=== PATIENT | male | born 1955 | race Caucasian/White ===

== ENCOUNTER 2020-01-02 08:30 | Observation (INO) | payer BC, SELFPAY ==
[2020-01-02] VITALS (37 sets, daily range): BP systolic 128–219; BP diastolic 55–109; PULSE 38–91; RESP 12–25; TEMP 36.3–36.6; O2SAT 95–100; BMI 24.8
--- NOTE | 2020-01-02 | SC_ITS ---
WS: [id number] C-arm fluoroscopy view of the left chest, 01/02/2020 Clinical Data: pace maker Comparison: Portable chest, 01/02/2020 Findings: There are pacemaker wires overlying the heart. SC/C-arm FL for Pacemaker Impression: Pacemaker wires overlie the heart.
--- NOTE | 2020-01-02 | SCC_ITS ---
Procedure Done: Dual-chamber pacemaker implantation 125.4 seconds of fluoroscopic guidance, for a cumulative dose of 13.83 mGy, was provided to Dr. Lopez by the radiology department. C-arm images of the chest were saved for the patient's permanent record. [facility]
--- NOTE | 2020-01-02 08:33 | ECG_ITS ---
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 Measurements Intervals [place] Rate: 33 P: ND: -1 QRS: 175 QRSD: 138 T: 121 QT: 567 QTc: 424 Interpretive Statements SINUS BRADYCARDIA WITH 2ND DEGREE AV BLOCK, 2:1 OR MOBITZ TYPE I INTRAVENTRICULAR CONDUCTION DELAY [130+ ms QRS DURATION] Lead reversal in 1 and aVL ABNORMALITY IN I/aVL/V5/V6] PROLONGED QT INTERVAL CRITICAL TEST RESULT No previous ECG available for comparison Electronically Signed On 01-02-2020 19:41:17 CDT by Nish Lockhart M.D. [id number]
--- NOTE | 2020-01-02 08:33 | XRR_ITS ---
PROCEDURE INFORMATION: Exam: XR Chest, 1 View Exam date and time: 01/02/2020 8:58 AM Age: 64 years old Clinical indication: Type not specified; Patient HX: C/O shortness of breath and chest pain; Worse in last few days TECHNIQUE: Imaging protocol: XR of the chest Views: Frontal portable upright view of the chest. COMPARISON: No relevant prior studies available. FINDINGS: Tubes, catheters and devices: EKG leads are present overlying the chest. Lungs: The lungs are clear bilaterally. The pulmonary vasculature is normal. Pleural space: No pleural effusion. No pneumothorax. Heart/Mediastinum: The heart is normal in size and contour. Bones/joints: No acute chest wall abnormality identified. XR/XR chest 1V portable [id number] IMPRESSION: No acute cardiopulmonary abnormality identified.
[2020-01-02 08:51] LABS: Basophils # 0.1 10^3/uL (0.0-0.1); Basophils % 0.7 %; Eosinophils # 0.4 10^3/uL (0.0-0.8); Eosinophils % 4.8 %; Hematocrit 46.6 % (42.0-52.0); Hemoglobin 15.3 g/dL (11.7-16.6); Lymphocytes # 2.2 10^3/uL (0.8-4.8); Lymphocytes % 26.2 %; Mean Corpuscular HGB Conc 32.8 g/dL (30.0-36.0); Mean Corpuscular Hemoglobin 30.1 pg (28.0-34.0); Mean Corpuscular Volume 91.7 fL (80-94); Mean Platelet Volume 10.5 fL (7.4-10.4); Monocytes # 0.7 10^3/uL (0.2-0.9); Monocytes % 8.2 %; Neutrophils # 5.04 10^3/uL (1.8-7.7); Neutrophils % 59.9 %; Nucleated Red Blood Cells % 0 %; Platelet Count 323 10^3/cmm (130-400); Red Blood Count 5.08 10^6/uL (4.1-5.3); Red Cell Distribution Width 12.4 % (12.1-15.1); White Blood Count 8.4 10^3/uL (4.0-10.0)
--- NOTE | 2020-01-02 09:00 | ED_ITS ---
HPI - Chest Pain General: Chief Complaint: Chest Pain Stated Complaint: low HR Time Seen by Provider: 01/02/20 08:39 History of Present Illness: HPI narrative: 64-year-old male presents emergency room generally not feeling well for the last couple of weeks even months. He was seen yesterday at 1 of the outlying clinics was found to be bradycardic. On arrival here his heart rate is in the 30s he is not having any specific chest pain but just feels poorly. MD complaint: other (Bradycardia) Onset (ago): month(s) Timing of current episode: episodic and still present Onset: during rest and during exertion Relieving factors: nothing Exacerbating factors: nothing Associated symptoms: Reports dyspnea (With exertion); Deny abdominal pain, diaphoresis, leg edema, nausea, palpitations, sense of impending doom, syncope or vomiting Treatment prior to arrival: none Review of Systems Const: Denies: diaphoresis ENMT: Denies: throat pain, ear or mastoid pain, nasal discharge or nasal congestion Card: Denies: palpitations or syncope Resp: Reports: dyspnea (With exertion) GI: Denies: abdominal pain, nausea or vomiting : Denies: flank pain, dysuria, urinary frequency or urinary urgency Skin/Breast: Denies: rash or pruritus PFSH ED PFSH: Medical History Heart block bundle branch Social History Smoking and tobacco status: never smoked Physical Exam Const: COMMON NORMALS: no acute distress GENERAL APPEARANCE: cooperative and comfortable ORIENTATION/CONSCIOUSNESS: Yes awake, Yes oriented to person, Yes oriented to place and Yes oriented to time HENMT: COMMON NORMALS: normocephalic, atraumatic and hearing grossly normal bilaterally HEAD & SCALP: normocephalic and atraumatic Eye: COMMON NORMALS: Equal, round and reactive pupils present, EOMs intact bilaterally, conjunctivae normal and no scleral icterus CONJUNCTIVA: Yes conjunctivae normal PUPIL: Yes Equal, round and reactive pupils present Neck/C-Spine: COMMON NORMALS: no JVD Resp: COMMON NORMALS: normal respiratory effort, No retractions, No use of accessory muscles and clear to auscultation bilaterally AUSCULTATION: clear to auscultation bilaterally Cardio: COMMON NORMALS: no JVD, regular rhythm and No murmurs present (Cardio) RATE: bradycardic RHYTHM: regular rhythm and abnormal rhythm (Third-degree heart block noted on rhythm monitor) GI: COMMON NORMALS: Soft to palpation and No hepatosplenomegaly present AUSCULTATION: Yes normoactive bowel sounds PALPATION: Yes Soft to palpation, No Tenderness to palpation present (GI), No Guarding due to palpation present (GI) and Yes No hepatosplenomegaly present Extremity: COMMON NORMALS: normal to inspection, capillary refill normal, no clubbing, cyanosis or edema, no calf tenderness and no pedal edema Neuro: SENSORIUM/ORIENTATION: Yes oriented to person, Yes oriented to place and Yes oriented to time Skin: COMMON NORMALS: no rashes or lesions noted GENERAL SKIN EXAM: no rashes or lesions noted Course Vital Signs: Vital signs: Vital Signs Temperature 97.5 F L 01/03/20 03:15 Pulse Rate 60 01/03/20 09:46 Respiratory Rate 18 01/03/20 09:46 Blood Pressure 140/73 01/03/20 09:46 Pulse Oximetry 95 01/03/20 09:46 MDM - Chest Pain MDM Narrative: Medical decision making narrative: Patient is generally healthy. He does have a third-degree heart block on his monitor strip. He varies between a type II second-degree block to a full third-degree block and then will go back and this sinus bradycardia his heart rate at times dropping into the 30s. Consulted cardiology will see the patient in the emergency room we began to prep him for possible placement of temporary pacer he is on pacer pads and is on monitor at this time. Lab Data: Labs: Lab Results 01/02/20 01/02/20 01/02/20 Range/Units 08:41 08:41 08:41 WBC 8.4 (4.0-10.0) 10^3/ uL RBC 5.08 (4.1-5.3) 10^6/u L Hgb 15.3 (11.7-16.6) g/dL Hct 46.6 (42.0-52.0) % MCV 91.7 (80-94) fL MCH 30.1 (28.0-34.0) pg MCHC 32.8 (30.0-36.0) g/dL RDW 12.4 (12.1-15.1) % Plt Count 323 (130-400) 10^3/c mm MPV 10.5 H (7.4-10.4) fL Neut % (Auto) 59.9 % Lymph % (Auto) 26.2 % [place] % (Auto) 8.2 % Eos % (Auto) 4.8 % Baso % (Auto) 0.7 % Neut # (Auto) 5.04 (1.8-7.7) 10^3/u L Lymph # (Auto) 2.2 (0.8-4.8) 10^3/u L [place] # (Auto) 0.7 (0.2-0.9) 10^3/u L Eos # (Auto) 0.4 (0.0-0.8) 10^3/u L Baso # (Auto) 0.1 (0.0-0.1) 10^3/u L Nucleated RBC % (a uto) 0 % Nucleated RBCs # 0.0 /100WBC Sodium 138 (136-145) mmol/L Potassium 4.1 (3.5-5.1) mmol/L Chloride 102 (98-107) mmol/L Carbon Dioxide 26 (22-29) mmol/L Anion Gap 14.1 (5-19) BUN 10 (8-23) mg/dL Creatinine 0.8 (0.7-1.2) mg/dL GFR Calculation 97.6 (90-130) mL/min Glucose 145 H (65-115) mg/dL Calculated Osmolal ity 285 (285-295) mOsm/k g Calcium 9.4 (8.5-10.5) mg/dL Total Bilirubin 0.5 (0.15-1.2) mg/dL AST 23 (0-40) U/L ALT 21 (0-41) U/L Alkaline Phosphata se 75 (40-130) IU/L Troponin T Baselin e 13 (0-15) ng/L Total Protein 7.5 (6.6-8.7) g/dL Albumin 4.6 (3.5-5.2) g/dL Globulin 2.9 (1.3-4.6) g/dL TSH 3.81 (0.27-4.20) uIU/ mL Discharge Plan Discharge Patient Disposition: Admitted As Inpatient Admit Provider: Dionne Pelletier Clinical Impression: Heart block AV third degree Condition: Stable Discharge Diet: Usual diet and Low Salt Discharge Activity: Limit activity as instructed Discharge Date/Time: 01/02/20 11:06 Coding Level of Care Code 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
[2020-01-02 09:46] LABS: Troponin(5th) Baseline 13 ng/L (0-15)
[2020-01-02 09:53] LABS: Alanine Aminotransferase 21 U/L (0-41); Albumin Level 4.6 g/dL (3.5-5.2); Alkaline Phosphatase 75 IU/L (40-130); Anion Gap 14.1 (5-19); Aspartate Amino Transferase 23 U/L (0-40); Blood Urea Nitrogen 10 mg/dL (8-23); Calcium 9.4 mg/dL (8.5-10.5); Carbon Dioxide 26 mmol/L (22-29); Chloride 102 mmol/L (98-107); Creatinine Clr Calc Pharmacy 100.5123; Globulin 2.9 g/dL (1.3-4.6); Glomerular Filtration Rate 97.6 mL/min (90-130); Glucose 145 mg/dL (65-115); Osmolality Calculated 285 mOsm/kg (285-295); Potassium 4.1 mmol/L (3.5-5.1); Sodium 138 mmol/L (136-145); Thyroid Stimulating Hormone 3.81 uIU/mL (0.27-4.20); Total Bilirubin 0.5 mg/dL (0.15-1.2); Total Protein 7.5 g/dL (6.6-8.7)
--- NOTE | 2020-01-02 10:19 | ANES.PREANE2 ---
Pre-Anesthetic Assessment Pre-Anesthetic Assessment: Height/Weight: Height 1.78 m Weight 78.471 kg Temp Pulse Resp BP Pulse Ox 97.9 F 41 L 12 178/99 99 01/02/20 08:31 01/02/20 09:37 01/02/20 09:37 01/02/20 09:37 01/02/20 09:37 Preop Diagnosis: AV block Proposed Procedure: Operation Date: 01/02/20 12:30 Proposed Procedures p Pacemaker Insertion(Not Applicable) - Rob Lopez MD Familial anesthetic complications: none Was Beta Victor M taken within 24 hours: N/A Last intake: Patient had half a cup of cream of wheat cereal before 0700 and some black coffee (cereal and coffee contained no dairy) - light carbohydrate meal. Will wait til 1300 Social: Social History: No alcohol and No tobacco Exam: Pre-Anes Outpt Exam: alert, oriented x 3, clear to auscultation bilaterally and regular rate & rhythm Additional Exam Findings (including area of procedure): bradycardia Airway: Cervical ROM: WNL MP: 2 Dentition: Chipped CV/HEM: CV/HEM: Palp Comments: AV block Anesthetic Plan: ASA status: 4 Anesthesia: MAC Risk of > 500 ml blood loss (7ml/kg in children): No PFSH Anesthesia PFSH: Social History Smoking and tobacco status: never smoked Data Anesthesia CBC & Chem 7: 01/02/20 08:41 01/02/20 08:41 Other Labs: Laboratory Results - last 48 hr 01/02/20 01/02/20 01/02/20 08:41 08:41 08:41 WBC 8.4 RBC 5.08 Hgb 15.3 Hct 46.6 MCV 91.7 MCH 30.1 MCHC 32.8 RDW 12.4 Plt Count 323 MPV 10.5 H Neut % (Auto) 59.9 Lymph % (Auto) 26.2 [place] % (Auto) 8.2 Eos % (Auto) 4.8 Baso % (Auto) 0.7 Neut # (Auto) 5.04 Lymph # (Auto) 2.2 [place] # (Auto) 0.7 Eos # (Auto) 0.4 Baso # (Auto) 0.1 Nucleated RBC % (auto) 0 Nucleated RBCs # 0.0 Sodium 138 Potassium 4.1 Chloride 102 Carbon Dioxide 26 Anion Gap 14.1 BUN 10 Creatinine 0.8 GFR Calculation 97.6 Glucose 145 H Calculated Osmolality 285 Calcium 9.4 Total Bilirubin 0.5 AST 23 ALT 21 Alkaline Phosphatase 75 Troponin T Baseline 13 Total Protein 7.5 Albumin 4.6 Globulin 2.9 TSH 3.81 Cardiac Studies: No Data to Display
[2020-01-02] MEDS: nitroglycerin 1 gm/inch oint Pkt 0.5 INCH TOPICAL (10:23)
--- NOTE | 2020-01-02 10:33 | ECG_ITS ---
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 Measurements Intervals [place] Rate: 40 P: 14 [place]: 219 QRS: -4 QRSD: 133 T: 57 QT: 505 QTc: 415 Interpretive Statements SINUS BRADYCARDIA WITH FIRST DEGREE AV BLOCK INTRAVENTRICULAR CONDUCTION DELAY [130+ ms QRS DURATION] MODERATE VOLTAGE CRITERIA FOR LVH, CONSIDER NORMAL VARIANT [MEETS CRITERIA IN ONE OF: R(aVL), S(V1), R(V5), R(V5/V6)+S(V1)] POSSIBLE ANTERIOR MYOCARDIAL INFARCTION , OF INDETERMINATE AGE [30 ms Q WAVE IN V3/V4, OR R < 0.2 mV IN V4] CRITICAL TEST RESULT Compared to ECG 01/02/2020 08:32:27 First degree AV block now present Prolonged QT interval no longer present Myocardial infarct finding still present Electronically Signed On 01-02-2020 20:05:21 CDT by Nish Lockhart M.D. [id number]
--- NOTE | 2020-01-02 10:42 | P.HP_ITS ---
Providers/Chief Complaint Admitting Physician: Dionne Pelletier MD Primary Care Provider: ALYSSIA Gonzalez Chief Complaint: low HR History of Present Illness Husam Tse is a 64 year old male presented with uncontrolled hypertension and significant bradycardia with Mobitz type II heart block heart rate into high 30s to low 40s. In general patient is a healthy individual who denies any prior history of coronary artery disease he is a non-smoker nondiabetic. For past few months patient has been struggling with fatigue shortness of breath and slow heart rate. Occasionally he felt dizzy while standing, he attributed it to aging process. Today he noted worsening of fatigue and shortness of breath, he checked his pulse which was in 30s therefore he he came to ER. Twelve-lead EKG was consistent with Mobitz type II heart block and interventricular conduction delay. There was no electrolyte imbalance nor he is on any donna angela TSH is within normal limit. He denies history of Lyme disease. He denies chest pain PND orthopnea. His systolic blood pressure in the ER was in 190s. He does not on meds for hypertension. Medications/Allergies Home Medications Medication Instructions Recorded Confirmed Last Taken Type No Known Home Medications 01/02/20 01/02/20 Unknown History Allergies Allergy/AdvReac Type Severity Reaction Status Date / Time No Known Allergies Allergy Verified 01/02/20 08:46 PFSH Acute PFSH: Social History Smoking and tobacco status: never smoked Vitals/I&O/Wt Last Vital Signs Temp 97.9 F 01/02/20 08:31 Pulse 44 L 01/02/20 10:41 Resp 12 01/02/20 10:41 BP 155/86 01/02/20 10:41 Pulse Ox 96 01/02/20 10:41 Weight last 48 hrs Weight 173 lb Physical Exam Narrative: EXAM NARRATIVE: GENERAL: Patient is alert, awake and oriented x3. NECK: No jugular vein distension. HEENT: No cyanosis. No icterus. No pallor. HEART: Regular S1 and S2. No murmur, rub or gallop. LUNGS: Clear to auscultate bilaterally. ABDOMEN: Soft, nontender and nondistended. Positive bowel sounds. No guarding, rebound or tenderness. CENTRAL NERVOUS SYSTEM: Grossly nonfocal. EXTREMITIES: Lower extremities without edema bilaterally. Data : 01/02/20 08:41 01/02/20 08:41 Attestation for Other Data: I personally reviewed and interpreted the following: Other data: SINUS BRADYCARDIA WITH 2ND DEGREE AV BLOCK, 2:1 OR MOBITZ TYPE II INTRAVENTRICULAR CONDUCTION DELAY [130+ ms QRS DURATION] LATERAL MYOCARDIAL INFARCTION , OF INDETERMINATE AGE [40+ ms Q WAVE AND/OR ST/T ABNORMALITY IN I/aVL/V5/V6] PROLONGED QT INTERVAL CRITICAL TEST RESULT No previous ECG available for comparison A&P Assessment and plan (1) Heart block bundle branch: Patient has Mobitz type heart block with interventricular conduction delay suggestive of high degree heart block. He is not on any donna angela he denies chest pain denies history of coronary artery disease. His slow heart rate is going on for the last few months. He is symptomatic with shortness of breath and fatigue along with dizziness. At this point we recommend proceeding with permanent pacemaker. We have requested Dr. Lopez to see patient. Dr. Lopez saw the patient and agree with our findings. Surgery will proceed with permanent pacemaker placement most likely this afternoon. Patient will be n.p.o. Status: Acute (2) Essential hypertension: We will control blood pressure with nitro paste and probably drip if ne eded. Once pacemaker will be placed further titration of medicine will be performed. Status: Acute Attestations Medical Necessity Statement*: Patient require continuation hospitalization and admission for above defined care and for post pacemaker placement care. 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
--- NOTE | 2020-01-02 10:56 | PM.CONSULT ---
Providers/Reason For Consult Consulting Physican/Specialty*: Dr. Lopez/cardiothoracic surgery Reason for Consult*: Pacemaker implantation Requesting Physcian: Dr. Pelletier Attending Physician: Dionne Pelletier MD Primary Care Provider: ALYSSIA Gonzalez History of Present Illness History of Present Illness Husam Tse is a 64 year old male who was admitted after scheduled visit with Dr. Pelletier today upon referral from his primary care provider Ms. Blackburn. Mr. Tse has had a progressive 2 to 3-month history of increasing dyspnea with exertion and increasing fatigability. He was found upon presentation to his primary care provider yesterday to have marked bradycardia and Mobitz type II AV heart block, with interventricular conduction delay. He was seen today by Dr. Pelletier again with substantial highly symptomatic bradycardia. He was electively admitted and I was contacted by Dr. Pelletier to consider pacemaker implantation in expeditious fashion due to the highly symptomatic nature of his bradycardia. There is been no syncope though substantial and increasing fatigability and dyspnea with only modest exertion. He does have a history of poorly controlled hypertension. Thyroid functions are normal. No history for tickborne illness. Review of Systems Const: Denies: fever(s), chills, change in appetite, change in weight, fatigue or night sweats Eyes: Denies: change in vision or blurry vision ENMT: Denies: odynophagia or hoarseness Card: Reports: dyspnea on exertion; Denies: chest pain, palpitations, irregular heart rhythm, edema or orthopnea Resp: Denies: dyspnea or productive cough GI: Denies: abdominal pain, nausea, vomiting, dysphagia, heartburn or change in bowel habits : Denies: difficulty urinating, dysuria, urinary frequency, urinary urgency or urinary hesitancy Musc: Denies: extremity pain or extremity swelling Skin/Breast: Denies: rash Neuro: Denies: headache(s), numbness in extremities, weakness in extremities or sensory changes Psych: Denies: anxiety, depression or change in appetite Endo: Denies: polyuria, polydipsia or cold intolerance [place]/Lymph: Denies: easy bruising, easy bleeding, petechiae or enlarged lymph nodes Meds/Allergies Home Medications and Allergies Home Medications Medication Instructions Recorded Confirmed Last Taken Type No Known Home Medications 01/02/20 01/02/20 Unknown History Allergies Allergy/AdvReac Type Severity Reaction Status Date / Time No Known Allergies Allergy Verified 01/02/20 08:46 Current Medications Current Medications Generic Name Dose Route Start Last Admin Trade Name Loretta PRN Reason Stop Dose Admin Nitroglycerin 0.5 inch 01/02/20 09:45 01/02/20 10:23 Nitro-Bid TOPICAL 0.5 inch Q6H VIJAY Administration PFSH Acute PFSH: Social History Smoking and tobacco status: never smoked Vitals/I&O/Wt Last Vital Signs Temp 97.9 F 01/02/20 08:31 Pulse 44 L 01/02/20 10:41 Resp 12 01/02/20 10:41 BP 155/86 01/02/20 10:41 Pulse Ox 96 01/02/20 10:41 Weight last 48 hrs Weight 173 lb Physical Exam Const: COMMON NORMALS: patient oriented x3 and alert ORIENTATION/CONSCIOUSNESS: Yes oriented to person, Yes oriented to place and Yes oriented to time HENMT: COMMON NORMALS: normocephalic HEAD & SCALP: normocephalic Neck/C-Spine: COMMON NORMALS: full ROM, supple, no JVD and No carotid bruits GENERAL: Yes trachea midline CERVICAL SPINE: Yes cervical ROM normal Chest: COMMONS NORMALS: normal inspection of the chest and normal palpation of entire chest wall Resp: COMMON NORMALS: normal respiratory effort, No use of accessory muscles, clear to auscultation bilaterally and percussion normal EFFORT & INSPECTION: Yes able to speak in complete sentences and Yes symmetric chest movement AUSCULTATION: clear to auscultation bilaterally PERCUSSION: percussion normal Cardio: COMMON NORMALS: no JVD, regular rhythm, S1 normal heart sound present, S2 normal heart sound present, No gallops present (Cardio), No murmurs present (Cardio), No rub (Cardio) and Peripheral pulses 2+ throughout; negative for regular rate JUGULAR VENOUS DISTENTION: no JVD RATE: abnormal rate and bradycardic RHYTHM: regular rhythm HEART SOUNDS: S1 normal heart sound present and S2 normal heart sound present PERIPHERAL PULSES: Peripheral pulses 2+ throughout Neuro: COMMON NORMALS: patient oriented x3, no focal motor deficits and no sensory deficits noted SENSORIUM/ORIENTATION: Yes alert, Yes oriented to person, Yes oriented to place and Yes oriented to time GAIT: Yes Normal gait present Data Other Data: Attestation for Other Data: I personally reviewed and interpreted the following: (Chest x-ray is clear with normal cardiac silhouette and contours.) A&P Assessment and plan (1) Mobitz type II atrioventricular block: Highly symptomatic bradycardia with Mobitz type II AV heart block. I have conferred with my colleague Dr. Pelletier. We will proceed with expeditious pacemaker implantation around 1 PM today. I discussed the rationale very carefully with Mr. Tse and family at bedside. Details and risk of the procedure were Reviewed include the potential for pneumothorax requiring chest tube, major vascular injury, dislodgment of the leads requiring revision, pain after surgery, infection requiring removal of the device, and need for routine follow-up and monitoring. He and his family are eager to proceed. 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
--- NOTE | 2020-01-02 11:00 | PC.NURSE ---
RECEIVED FROM ER PER ROSELINE. ALERT/ORIENTED X3. PLEASANT,COOPERATIVE. HOOKED UP TO ZOLL MONITOR FOR EXTERNAL PACING IF BECOMES SYMPTOMATIC. PIID LEFT AC W/ NS @150 REPORTS HE HAS BEEN FEELING BAD FOR THE PAST COUPLE OF WEEKS & JUST GOTTEN PROGRESSIVELY WORSE OVER THE PAST COUPLE OF WEEKS WITH NOT BEING ABLE TO CATCH HIS BREATH.
[2020-01-02 11:04] LABS: Troponin 5 2HR 9.97 ng/L (0-15)
[2020-01-02 11:09] LABS: Troponin 5 2HR Delta -3.03 ABS# (0-10)
[2020-01-02] MEDS: sodium chloride 0.9% 1,000 ML 150 ML IV (11:40)
[2020-01-02] MEDS: chlorhexidine gluconate 4% Btl 118 mL 1 APPLIC TOPICAL (11:52)
--- NOTE | 2020-01-02 12:52 | PC.NURSE ---
OR STAFF HERE TO TRANSPORT TO SURGERY. WISHED WELL
[2020-01-02] MEDS: lidocaine 1% INJ 20 mL INJECTION (13:22)
[2020-01-02] MEDS: ceFAZolin 1,000 mg SDV 1000 MG IRRIGATION (13:23)
--- NOTE | 2020-01-02 14:12 | PM.OP ---
Operative Report Date of procedure: January 02, 2020 Pre-op Diagnosis: AV block Post-op diagnosis: same Procedure Done: Dual-chamber pacemaker implantation Pathology: none sent Surgeon: Rob Lopez Anesthesia: MAC and Local Complications: None: Post procedure chest x-ray pending Findings: Fluoroscopy utilized for guidewire, sheath, and lead positioning. Condition: stable Disposition: PACU Brief History: 64-year-old gentleman presented with progressive fatigue over the past 2 to 3 months and was found to be profoundly bradycardic with heart rates in the 30s to low 40s and appeared to have a Mobitz type II AV block. He was Evaluated in the ER and as well as by Dr. Pelletier from cardiology. Pacemaker implantation has been recommended. Rationale for the procedure was carefully and frankly discussed with Mr. Tse and his family. Proper consents have been reviewed and signed. Procedure: Procedure: Mr. Tse was taken to the OR suite and placed in the supine position over a shoulder roll. He received conscious sedation with continuous anesthesia monitoring by. His entire chest was sterilely prepped and draped. 1% lidocaine was infiltrated in the left subclavicular region. While in Trendelenburg position, utilizing modified seldinger technique, 2 guidewires were placed in the [left/right] subclavian vein. This was confirmed in position by fluoroscopy. Next, after infiltration with lidocaine, a subcutaneous pocket was created beginning from the exit point of the guidewire and extending laterally and inferiorly. Cautery was utilized to create the pocket just above the pectoralis musculature. Hemostasis was confirmed. An antibiotic-soaked sponge was placed in the wound. A dilator and tear-away sheath was placed over the first guidewire and advanced under fluoroscopy. Guidewire and dilator were removed. Next using a combination of curved and straight stylettes, the right ventricular lead was placed in position by fluoroscopy. The distal screw was extended. Interrogation was then performed confirming appropriate parameters. The tear-away sheath was then removed and the ventricular lead was sewn to the floor of the subcutaneous pocket. In a similar fashion dilator and tear-away sheath was placed over the 2nd guide wire and advanced under fluoroscopy. Guidewire and dilator were removed. Straight and curved stylettes were used to position the right atrial lead with fluoroscopy. Distal screw was extended. Interrogation was then performed. Tear-away sheath was then removed. Atrial lead was secured to the floor of the subcutaneous pocket. Pocket was irrigated with antibiotic solution and hemostasis again confirmed. Pacing generator was brought into the field, and after confirmation of hemostasis in the subcutaneous pocket, the leads were connected to the generator with appropriate capture. The entire system was interrogated by fluoroscopy. Leads and generator were secured in the pocket. Sponge and needle count was correct. The wound was then closed in 2 layers of 3-0 Vicryl suture. Skin was reapproximated in a subcuticular manner with 4-0 Monocryl suture. A pressure dressing was applied. The left arm was placed in a sling. Mr. Tse had equal breath sounds bilaterally. He was then transferred to the PACU, where chest x-ray is currently pending. I did student success counselor with the family at the completion of the procedure. Following are the specifics of this system: Right ventricular lead is 58 cm and model 5076. Serial number [id number] Right atrial lead is 52 cm and is model 5076. Serial number [id number]. Ventricular lead had sensing of 8.1 mV with an impedance of 798 ohms. Threshold was 0.5 V Atrial lead had sensing of 1.8 mV with an impedance of 475 ohms. Threshold was 0.5 V. [employer] generator: Model # [id number] Serial # [id number]
[2020-01-02] MEDS: sodium chloride 0.9% 1,000 ML 75 ML IV ×2 (14:30→19:53)
--- NOTE | 2020-01-02 14:33 | ECG_ITS ---
[facility] Test Date: 2020-01-02 Pat Name: Husam Tse Department: Room: ICU11 Gender: Male All Purpose Clerk: : 1955 Requested By: Jeri Jackson Order Number: [id number] Sunny MD: Nish Lockhart M.D. Measurements Intervals [place] Rate: 60 P: 158 NV: 180 QRS: -43 QRSD: 145 T: 80 QT: 474 QTc: 475 Interpretive Statements ELECTRONIC ATRIAL PACEMAKER ELECTRONIC VENTRICULAR PACEMAKER ABNORMAL RHYTHM ECG Compared to ECG 01/02/2020 10:20:01 Sinus bradycardia no longer present First degree AV block no longer present Intraventricular conduction delay no longer present Myocardial infarct finding no longer present Electronically Signed On 01-02-2020 20:07:55 CDT by Nish Lockhart M.D. [id number]
[2020-01-02 15:28] LABS: Troponin 5 6HR 15.78 ng/L (0-15); Troponin 5 6HR Delta 2.78 ng/L (0-12)
[2020-01-02] MEDS: oxyCODONE-APAP 5-325 mg Tablet 1 TAB PO (15:36)
--- NOTE | 2020-01-02 16:22 | PM.PACU ---
PACU note Post-Anesthesia Exam: awake and vital signs stable Disposition: admitted (to ICU)
[2020-01-02] MEDS: HYDROcodone-acetaminophen 5-325 mg Tablet 1 TAB PO (21:04)
--- NOTE | 2020-01-02 21:51 | PC.NURSE ---
CHANGE OF SHIFT Report given to current nurse by SAMRA Quezada. Patient requested pain medication closer to bedtime. NS running at 75 mL/hour. Patient informed of bedrest x 6 hours and informed that he could get up to pee at 2100. Patient to side of bed to urinate with minimal assistance, with emphasis on arm restrictions.
[2020-01-03] VITALS (29 sets, daily range): BP systolic 133–163; BP diastolic 73–96; PULSE 58–79; RESP 0–29; TEMP 36.4; O2SAT 95–98
[2020-01-03] MEDS: HYDROcodone-acetaminophen 5-325 mg Tablet 1 TAB PO (01:13)
--- NOTE | 2020-01-03 01:31 | PC.NURSE ---
HR INCREASE Patient stood up to side of bed with nurse to urinate. Patient heart rate briefly increased from 60 to 90's. Patients apical rate and radial rate were obtained and both were the same reading at 60 beats per minute. Patient returned to set rate of 60 quickly and denied any shortness of breath or chest discomfort.
--- NOTE | 2020-01-03 06:00 | ECG_ITS ---
[facility] Test Date: 2020-01-03 Pat Name: Husam Tse Department: Room: ICU11 Gender: Male Display Designer: TERESITAVICTOR HUGOBrigette : 1955 Requested By: Rob Lopez Order Number: [id number] Correa MD: Dionne Pelletier M.D. Measurements Intervals [place] Rate: 60 P: 196 AL: 180 QRS: 88 QRSD: 161 T: -11 QT: 495 QTc: 495 Interpretive Statements ELECTRONIC ATRIAL PACEMAKER ELECTRONIC VENTRICULAR PACEMAKER ABNORMAL RHYTHM ECG Compared to ECG 01/02/2020 14:57:52 No significant changes Electronically Signed On 01-03-2020 20:24:46 CDT by Dionne Pelletier M.D. [id number]
--- NOTE | 2020-01-03 06:00 | XR_ITS ---
WS: [id number] Portable AP upright chest, 01/03/2020 Clinical Data: Post permanent pacemaker placement; visualize lead tip Comparison: C-arm view of the central chest, 01/02/2020 Findings: No nodules, masses or effusions are seen. The heart is normal. The pulmonary vascularity is not increased. No pneumonia or pneumothorax is seen. The pacemaker leads appear to and in the right atrium and in the right ventricle. The pacemaker generator overlies the upper left lateral chest. XR/XR chest 1V [id number] Impression: Pacemaker wires visualized in the heart.
--- NOTE | 2020-01-03 06:15 | PM.PN ---
Subjective Subjective: Interval history: Postop day #1 status post dual-chamber pacemaker implantation. Uneventful night. [place] provided good pain relief. Monitor reveals dual paced rhythm. Vitals/I&O/Wt Last Vital Signs Temp 97.5 F L 01/03/20 03:15 Pulse 60 01/03/20 05:00 Resp 0 L 01/03/20 05:00 BP 150/92 01/03/20 05:00 Pulse Ox 96 01/03/20 05:00 01/02/20 01/02/20 01/03/20 14:59 22:59 06:59 Intake Total 50 / 50 1253.75 / 1303.75 500 / 1803.75 Output Total 350 / 350 650 / 1000 400 / 1400 Balance -300 / -300 603.75 / 303.75 100 / 403.75 Weight last 48 hrs Weight 173 lb Physical Exam Chest: COMMONS NORMALS: normal inspection of the chest (Outer dressing removed. Her dressing remains in place. No swelling or evidence for fluid collection.) Resp: COMMON NORMALS: normal respiratory effort, No use of accessory muscles and clear to auscultation bilaterally AUSCULTATION: clear to auscultation bilaterally Cardio: COMMON NORMALS: regular rate, regular rhythm and S1 normal heart sound present PALPATION: normal PMI RATE: regular rate RHYTHM: regular rhythm HEART SOUNDS: S1 normal heart sound present Data : 01/02/20 08:41 01/02/20 08:41 A&P Assessment and plan (1) Mobitz type II atrioventricular block: Postop day #1 status post dual-chamber pacemaker implantation. Recovering well. Plan may be discharged to home at the discretion of Dr. Pelletier. Follow-up in pacemaker clinic a week from tomorrow. I will place discharge incision care instructions in the discharge orders. Status: Acute Attestations Medical Necessity Statement*: Mobitz type II AV heart block, highly symptomatic bradycardia. Status post dual-chamber pacemaker implantation Time Spent in Patient Care: less than 15 minutes Coding Level of Care Code Acute Diesel Mechanic Helper for Valerie Gonsalves Diagnoses Mobitz type II atrioventricular block I44.1
--- NOTE | 2020-01-03 06:23 | PC.NURSE ---
SHIFT SUMMARY Patient had uneventful night and rested well. Patient up to side of bed to urinate twice with minimal assistance. 700 mL urine output this shift. [place] given twice tonight for pain. Patient was complaining of slight pain at 0615 but did not want an additional dose of pain medication yet. Dr. Lopez came to see patient at 0610 and removed top pressure dressing over incision. Site has no drainage or redness. Per Dr. Lopez, patient was able to take off sling with instruction on arm restrictions again and IV fluids to be stopped. Patient's HR at 60 this shift with the exception of one brief tachycardic episode (see previous note.)
--- NOTE | 2020-01-03 06:49 | PC.NURSE ---
Interrogated pacemacker. [employer] rep Umana called and reported that the pacemaker was functioning properly. Report in patient's chart.
--- NOTE | 2020-01-03 07:18 | ANE.PACU2 ---
Inpatient post-anesthesia follow up: Airway intact: Yes Vital signs: Temperature 97.5 F Pulse Rate [Apical ] 48 Pulse Rate 60 Respiratory Rate 19 Blood Pressure [Le ft Arm] 219/75 Blood Pressure 147/87 Pulse Oximetry 96 Oxygen Delivery Me thod Room Air Oxygen Flow Rate 6 Fraction of Inspir ed Oxygen Hydration adequate: Yes Nausea and vomiting: No Pain level: 3 Mental status: Baseline
[2020-01-03] MEDS: oxyCODONE-APAP 5-325 mg Tablet 1 TAB PO (08:36)
--- NOTE | 2020-01-03 09:36 | PC.NURSE ---
DR FELIZ HERE TO SEE PT. HE REVIEWED DISCHARGE INSTRUCTIONS WITH PT.
--- NOTE | 2020-01-03 09:39 | P.DS_ITS ---
Discharge Providers Date of Admission: 01/02/20 09:49 Date of Discharge: January 03, 2020 Attending Provider at Admission: Dionne Pelletier MD Attending Provider at Discharge: Dionne Pelletier MD Primary Care Provider: ALYSSIA Gonzalez Diagnoses at Discharge Discharge Diagnosis (1) Mobitz type II atrioventricular block: Status: Resolved Reason for Visit Reason for Visit: low HR Hospital Course Discharge Summary: 64-year-old male otherwise healthy non-smoker nondiabetic presented with Mobitz type II heart block with heart rate of 30s to 40s and history of fatigue presyncope severe fatigue. He was observed and ruled out for reversible causes. He was also noted to be hypertensive for which medicines were optimized. His blood pressure remains stable after that. He underwent dual-chamber pacemaker by Dr. Lopez. He started feeling right with better this morning he is walking around without any difficulty. Pacemaker wound looks good. He is being discharged home he will be following up with pacemaker clinic in 1 week and with me in 4 to 6 weeks. Physical Exam Narrative: EXAM NARRATIVE: GENERAL: Patient is alert, awake and oriented x3. Left chest pacemaker wound appeared good NECK: No jugular vein distension. HEENT: No cyanosis. No icterus. No pallor. HEART: Regular S1 and S2. No murmur, rub or gallop. LUNGS: Clear to auscultate bilaterally. ABDOMEN: Soft, nontender and nondistended. Positive bowel sounds. No guarding, rebound or tenderness. CENTRAL NERVOUS SYSTEM: Grossly nonfocal. EXTREMITIES: Lower extremities without edema bilaterally. Discharge Data Data Completed and Pending: Completed Studies During Hospitalization Category Date Time Status ELECTRO MECHANIC request for service Routin e Exams 01/02/20 09:11 Completed XR chest 1V [id number] Routine Exams 01/03/20 06:00 Completed XR chest 1V sai ble [id number] Urgent Exams 01/02/20 08:33 Completed Pending at discharge Category Date Time Status C-arm FL for Pace maker Routine Exams 01/02/20 Taken Labs from last 24 hours 01/02/20 01/02/20 01/02/20 14:48 10:35 08:41 Sodium Potassium Chloride Carbon Dioxide Anion Gap BUN Creatinine GFR Calculation Glucose Calculated Osmolal ity Calcium Total Bilirubin AST ALT Alkaline Phosphata se Troponin T Baselin e 13 Troponin T 120 Min sheryl 9.97 Delta Troponin T -3.03 L Troponin T Hi Sens 6Hr 15.78 H Troponin T Hi Sens 6Hr Delta 2.78 Total Protein Albumin Globulin TSH 01/02/20 08:41 Sodium 138 Potassium 4.1 Chloride 102 Carbon Dioxide 26 Anion Gap 14.1 BUN 10 Creatinine 0.8 GFR Calculation 97.6 Glucose 145 H Calculated Osmolal ity 285 Calcium 9.4 Total Bilirubin 0.5 AST 23 ALT 21 Alkaline Phosphata se 75 Troponin T Baselin e Troponin T 120 Min sheryl Delta Troponin T Troponin T Hi Sens 6Hr Troponin T Hi Sens 6Hr Delta Total Protein 7.5 Albumin 4.6 Globulin 2.9 TSH 3.81 Vitals: Last Vital Signs Temp 97.5 F L 01/03/20 03:15 Pulse 60 01/03/20 08:00 Resp 18 01/03/20 08:36 BP 163/95 01/03/20 08:00 Pulse Ox 95 01/03/20 08:36 Discharge Plan Discharge Patient Disposition: Home Condition: Stable Prescriptions: New hydrocodone-acetaminophen 5-325 mg Tablet 1 tab PO Q6H PRN (Reason: Moderate Pain) Qty: 15 RF: 0 lisinopril 5 mg tablet 5 mg PO DAILY Qty: 30 RF: 4 Discharge Orders: Discharge Order (Routine); Ordered 01/03/20 Ordered By: Dionne Pelletier Referrals: [facility] [Provider Group] - 7-10 days (Pacemaker clinic will do post pacemaker follow up, pacemaker check , wound check scheduled for January 09.2019 at 09:00 When appointment at this time ,will set follow up appointment with Pyaidee.) Dionne Pelletier MD [Physician] - (Dr. Pelletier will be out of town of January .so at time of wound check and pacemaker check january 09, [facility] will schedule appointment.) Discharge Diet: Usual diet and Low Salt Discharge Activity: Limit activity as instructed Patient Instructions: Lisinopril (By mouth), Hydrocodone/Acetaminophen (By mouth), Heart Healthy Diet (DC), Post Pacemaker - Lopez Activity Restrictions/Additional Instructions: Do not lift left arm above eye level for 1 week May remove bandage on Tuesday, January 04 After bandage removed, may begin daily showers. Dry incision completely. No swimming or tub baths x2 weeks Report any redness, swelling, drainage, increasing pain, or fever. Discharge Date/Time: 01/03/20 10:31 Discharge Attestations Time Spent in Discharge Care*: less than 30 min Specific Discharge Activities: Specific discharge activities: educating patient Quality Metrics Clinical Quality Measures During this hospital stay, did patient experience: None Coding Level of Care Code Acute Dining Chair Seat Cushion Trimmer for Chg Fwd Diagnoses Mobitz type II atrioventricular block I44.1
--- NOTE | 2020-01-03 10:31 | PC.NURSE ---
DISCHARGED HOME. TO PRIVATE VEHICLE BY WHEELCHAIR. ALERT/ORIENTED X3. ALL DISCHARGE INSTRUCTIONS REVIEWED W/ PT & FAMILY. THEY WILL WELLNESS PROGRAM ADMINISTRATOR MEDS AT [facility]. PERSONAL BELONGINGS SENT WITH PT. WISHED WELL.
== END 2020-01-03 10:31 | disposition home or self-care (01) ==
LOC: ER 09:46 → ICU 10:43
PROVIDERS: Physician Assistant; Thoracic Surgery (Cardiothoracic Vascular Surgery); Admitting Provider Internal Medicine Cardiovascular Disease; PCP Registered Nurse; Visit Provider Internal Medicine Cardiovascular Disease
DX: I44.1 Atrioventricular block, second degree (principal); I10 Essential (primary) hypertension
CPT/HCPCS: 33208; 12345; 36415; 71045; 76000; 80053; 84443; 84484; 85025; 93005; 96361; 96365; 96366; 99283; 99285; C1779; C1786; C1898; G0378; J0690; J2250; J2704; J3010; J7030

== ENCOUNTER → 2020-02-19 11:23 | Outpatient (BNVA) | payer BC, SELFPAY | PROVIDERS: PCP Registered Nurse; Visit Provider Nurse Practitioner Family | DX: J06.9 Acute upper respiratory infection, unspecified (principal) | CPT/HCPCS: 87426 ==

== ENCOUNTER → 2020-07-15 10:54 | Outpatient (BNVA) | payer OTHER, SELFPAY | PROVIDERS: PCP Family Medicine; Visit Provider Family Medicine | DX: I10 Essential (primary) hypertension (principal); R35.1 Nocturia; R10.13 Epigastric pain | CPT/HCPCS: 80053; 80061; 82043; 84153 ==

== ENCOUNTER → 2020-12-17 11:11 | Outpatient (BNVA) | payer OTHER, SELFPAY | PROVIDERS: PCP Family Medicine; Visit Provider Specialist | DX: M17.0 Bilateral primary osteoarthritis of knee (principal); M25.561 Pain in right knee; M25.562 Pain in left knee | CPT/HCPCS: 73560; 73565 ==

== ENCOUNTER → 2020-12-25 08:51 | Outpatient (BNVA) | payer OTHER, SELFPAY | PROVIDERS: PCP Family Medicine; Visit Provider Family Medicine Adult Medicine | DX: R39.15 Urgency of urination (principal); N41.0 Acute prostatitis | CPT/HCPCS: 81000 ==

== ENCOUNTER → 2021-01-06 09:26 | Outpatient (BNVA) | payer OTHER, SELFPAY | PROVIDERS: PCP Family Medicine; Visit Provider Family Medicine | DX: R10.13 Epigastric pain (principal) | CPT/HCPCS: 80053; 85025 ==

== ENCOUNTER → 2021-05-20 11:40 | Outpatient (BNVA) | payer MEDICARE, SELFPAY | PROVIDERS: PCP Family Medicine; Visit Provider Nurse Practitioner Family | DX: R06.00 Dyspnea, unspecified (principal); I10 Essential (primary) hypertension; Z95.0 Presence of cardiac pacemaker | CPT/HCPCS: 80048; 83880; 85025 ==

== ENCOUNTER 2021-08-04 10:17 | Observation (INO) | payer MEDICARE, SELFPAY ==
[2021-08-04] VITALS (13 sets, daily range): BP systolic 97–167; BP diastolic 56–93; PULSE 60–85; RESP 15–19; TEMP 36.5–37; O2SAT 94–96; BMI 24.7
--- NOTE | 2021-08-04 10:34 | ED_ITS ---
HPI - Chest Pain General: Chief Complaint: Chest Pain Stated Complaint: chest pain Time Seen by Provider: 08/04/21 10:26 Source: patient Mode of arrival: ambulatory Limitations: no limitations History of Present Illness: 66-year-old male presents with chest pain and shortness of breath. Patient seen a couple months ago for chest pain to rule out was negative and he was discharged to have an outpatient stress test unfortunately does not been able to be completed. In the interim he has had increasing episodes of dyspnea with lower and level lower exertion levels. He is now to the point where he is beginning to have chest discomfort and shortness of breath while at rest began early this morning while he was in bed and persisted intermittently throughout the morning until he finally presented to the emergency room is not have any chest discomfort initially on arrival here later in the visit though he did begin to complain of some chest tightness and increasing shortness of breath that occurred while he was sitting at rest. Earlier this morning the pain radiated into his neck and into his left shoulder as well. He is not diabetic he has no known history of coronary artery disease he did previously have a heart block requiring placement of a pacemaker in December 2019. complaint: chest pain Onset (ago): week(s) Timing of current episode: episodic Prior episodes: Yes Onset: during rest and during exertion Pain location: left chest Pain radiation: neck and left shoulder Severity: moderate Quality: tightness, aching and heaviness Relieving factors: rest Exacerbating factors: exertion Associated symptoms: Reports dyspnea; Deny abdominal pain, diaphoresis, fever(s), leg edema, nausea, palpitations, sense of impending doom, syncope or vomiting Treatment prior to arrival: none Review of Systems Const: Denies: fever(s) or diaphoresis ENMT: Denies: throat pain, ear or mastoid pain, nasal discharge or nasal congestion Card: Denies: palpitations or syncope Resp: Reports: dyspnea GI: Denies: abdominal pain, nausea or vomiting : Denies: flank pain, dysuria, urinary frequency or urinary urgency Skin/Breast: Denies: rash or pruritus PFSH ED PFSH: Medical History Essential hypertension Heart block bundle branch History of 2019 novel coronavirus disease (COVID-19) History of gastric ulcer Hyperlipidemia Pacemaker Prostatitis, acute Surgical History History of permanent cardiac pacemaker placement Family History Other CAD (coronary artery disease) Stroke Social History Smoking and tobacco status: never smoked Alcohol intake: never Physical Exam Const: COMMON NORMALS: no acute distress GENERAL APPEARANCE: cooperative and comfortable ORIENTATION/CONSCIOUSNESS: Yes awake, Yes oriented to person, Yes oriented to place and Yes oriented to time HENMT: COMMON NORMALS: normocephalic, atraumatic and hearing grossly normal bilaterally HEAD & SCALP: normocephalic and atraumatic Neck/C-Spine: COMMON NORMALS: no JVD Resp: COMMON NORMALS: normal respiratory effort, No retractions, No use of accessory muscles and clear to auscultation bilaterally AUSCULTATION: clear to auscultation bilaterally Cardio: COMMON NORMALS: no JVD, regular rate, regular rhythm and No murmurs present (Cardio) RATE: regular rate RHYTHM: regular rhythm GI: COMMON NORMALS: Soft to palpation and No hepatosplenomegaly present AUSCULTATION: Yes normoactive bowel sounds PALPATION: Yes Soft to palpation, No Tenderness to palpation present (GI), No Guarding due to palpation present (GI) and Yes No hepatosplenomegaly present Extremity: COMMON NORMALS: normal to inspection, capillary refill normal, no clubbing, cyanosis or edema, no calf tenderness and no pedal edema Neuro: SENSORIUM/ORIENTATION: Yes oriented to person, Yes oriented to place and Yes oriented to time Skin: COMMON NORMALS: no rashes or lesions noted GENERAL SKIN EXAM: no rashes or lesions noted Course Vital Signs: Vital signs: Vital Signs Temperature 98.6 F 08/04/21 11:17 Pulse Rate 67 08/04/21 13:10 Respiratory Rate 19 H 08/04/21 13:10 Blood Pressure 120/80 08/04/21 13:10 Pulse Oximetry 96 08/04/21 13:10 MDM - Chest Pain Medical Decision Making Escalating chest pain over time initially with exertion now at rest. We will go ahead and admit patient consult cardiology. Admit to the hospitalist altered ultrasound of echo he is also complaining of leg pain will get venous duplex. Medical Records I reviewed the patient's medical records. Lab Data I reviewed the patient's lab results. : 08/04/21 10:45 08/04/21 10:45 Radiology Impressions Chest X-Ray 08/04/21 10:35 IMPRESSION: 1. No acute findings. 2. Cardiac device left anterior chest. 3. Small granuloma left perihilar region Laboratory Results WBC 8.8 10^3/uL (4.0-10.0) 08/04/21 10:45 RBC 5.66 10^6/uL (4.1-5.3) H 08/04/21 10:45 Hgb 17.0 g/dL (11.7-16.6) H 08/04/21 10:45 Hct 50.8 % (42.0-52.0) 08/04/21 10:45 MCV 89.8 fl (80-94) 08/04/21 10:45 MCH 30.0 pg (28.0-34.0) 08/04/21 10:45 MCHC 33.5 g/dL (30.0-36.0) 08/04/21 10:45 RDW 12.3 % (12.1-15.1) 08/04/21 10:45 Plt Count 368 10^3/cmm (130-400) 08/04/21 10:45 MPV 10.0 fL (7.4-10.4) 08/04/21 10:45 Neut % (Auto) 66.9 % 08/04/21 10:45 Lymph % (Auto) 22.2 % 08/04/21 10:45 [place] % (Auto) 8.1 % 08/04/21 10:45 Eos % (Auto) 1.9 % 08/04/21 10:45 Baso % (Auto) 0.6 % 08/04/21 10:45 Neut # (Auto) 5.88 10^3/uL (1.8-7.7) 08/04/21 10:45 Lymph # (Auto) 2.0 10^3/uL (0.8-4.8) 08/04/21 10:45 [place] # (Auto) 0.7 10^3/uL (0.2-0.9) 08/04/21 10:45 Eos # (Auto) 0.2 10^3/uL (0.0-0.8) 08/04/21 10:45 Baso # (Auto) 0.1 10^3/uL (0.0-0.1) 08/04/21 10:45 Nucleated RBC % (auto) 0 % 08/04/21 10:45 Nucleated RBCs # 0.0 /100WBC 08/04/21 10:45 Sodium 138 mmol/L (136-145) 08/04/21 10:45 Potassium 3.7 mmol/L (3.5-5.1) 08/04/21 10:45 Chloride 101 mmol/L (98-107) 08/04/21 10:45 Carbon Dioxide 25 mmol/L (22-29) 08/04/21 10:45 Anion Gap 15.7 (5-19) 08/04/21 10:45 BUN 11 mg/dL (8-23) 08/04/21 10:45 Creatinine 0.7 mg/dL (0.7-1.2) 08/04/21 10:45 GFR Calculation 113.2 mL/min (90-130) 08/04/21 10:45 Glucose 109 mg/dL (65-115) 08/04/21 10:45 Calculated Osmolality 286 mOsm/kg (285-295) 08/04/21 10:45 Calcium 9.7 mg/dL (8.5-10.5) 08/04/21 10:45 Magnesium 2.3 mg/dL (1.7-2.3) 08/04/21 10:45 Total Bilirubin 0.4 mg/dL (0.15-1.2) 08/04/21 10:45 AST 26 U/L (0-40) 08/04/21 10:45 ALT 36 U/L (0-41) 08/04/21 10:45 Alkaline Phosphatase 95 IU/L (40-130) 08/04/21 10:45 Troponin T Baseline 8 ng/L (0-15) 08/04/21 10:45 Total Protein 8.4 g/dL (6.6-8.7) 08/04/21 10:45 Albumin 4.7 g/dL (3.5-5.2) 08/04/21 10:45 Globulin 3.7 g/dL (1.3-4.6) 08/04/21 10:45 TSH 3.63 uIU/mL (0.27-4.20) 08/04/21 10:45 Discharge Plan Discharge Admit Provider: Ramiro Garza Condition: Stable Coding Level of Care Code ED Hand Cloth Folder for Valerie Gonslaves
--- NOTE | 2021-08-04 10:35 | ECG_ITS ---
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 Measurements Intervals [place] Rate: 61 P: 139 DC: 180 QRS: -12 QRSD: 152 T: 128 QT: 438 QTc: 444 Interpretive Statements ELECTRONIC ATRIAL PACEMAKER ELECTRONIC VENTRICULAR PACEMAKER ABNORMAL RHYTHM ECG Compared to ECG 01/03/2020 05:49:31 No significant changes Electronically Signed On 08-04-2021 18:38:21 CDT by Idalmis Barajas M.D. [id number]
--- NOTE | 2021-08-04 10:35 | XRR_ITS ---
PROCEDURE INFORMATION: Exam: XR Chest Exam date and time: 08/04/2021 10:59 AM Age: 66 years old Clinical indication: Pain; Angina pectoris; Additional info: Chest pain TECHNIQUE: Imaging protocol: XR of the chest. Views: 1 view. COMPARISON: CR XR chest 1V [id number] 01/03/2020 5:15 AM FINDINGS: Tubes, catheters and devices: Cardiac device left anterior chest. New lines similar findings seen comparing to prior examination. Lungs: Unremarkable. No consolidation. Small granuloma left perihilar region Pleural spaces: Unremarkable. No pleural effusion. No pneumothorax. Heart/Mediastinum: Unremarkable. No cardiomegaly. Bones/joints: Unremarkable. XR/XR chest 1V portable [id number] IMPRESSION: 1. No acute findings. 2. Cardiac device left anterior chest. 3. Small granuloma left perihilar region
[2021-08-04] MEDS: aspirin 81 mg Chew Tablet 324 MG PO (10:43)
[2021-08-04 10:55] LABS: Basophils # 0.1 10^3/uL (0.0-0.1); Basophils % 0.6 %; Eosinophils # 0.2 10^3/uL (0.0-0.8); Eosinophils % 1.9 %; Hematocrit 50.8 % (42.0-52.0); Lymphocytes % 22.2 %; Mean Corpuscular HGB Conc 33.5 g/dL (30.0-36.0); Mean Corpuscular Volume 89.8 fl (80-94); Monocytes # 0.7 10^3/uL (0.2-0.9); Monocytes % 8.1 %; Neutrophils # 5.88 10^3/uL (1.8-7.7); Neutrophils % 66.9 %; Nucleated Red Blood Cells % 0 %; Platelet Count 368 10^3/cmm (130-400); Red Blood Count 5.66 10^6/uL (4.1-5.3); Red Cell Distribution Width 12.3 % (12.1-15.1); White Blood Count 8.8 10^3/uL (4.0-10.0)
[2021-08-04 11:20] LABS: Troponin(5th) Baseline 8 ng/L (0-15)
[2021-08-04 11:22] LABS: Alanine Aminotransferase 36 U/L (0-41); Albumin Level 4.7 g/dL (3.5-5.2); Alkaline Phosphatase 95 IU/L (40-130); Anion Gap 15.7 (5-19); Aspartate Amino Transferase 26 U/L (0-40); Blood Urea Nitrogen 11 mg/dL (8-23); Calcium 9.7 mg/dL (8.5-10.5); Carbon Dioxide 25 mmol/L (22-29); Chloride 101 mmol/L (98-107); Globulin 3.7 g/dL (1.3-4.6); Glomerular Filtration Rate 113.2 mL/min (90-130); Glucose 109 mg/dL (65-115); Osmolality Calculated 286 mOsm/kg (285-295); Potassium 3.7 mmol/L (3.5-5.1); Sodium 138 mmol/L (136-145); Total Bilirubin 0.4 mg/dL (0.15-1.2); Total Protein 8.4 g/dL (6.6-8.7)
--- NOTE | 2021-08-04 11:39 | USCV_ITS ---
Husam Tse Age: 66 Gender: M : 1955 Exam Date: 08/04/2021 11:50 Ordering Phys: Kannan Winslow DO Technologist: NEFTALI [place] [facility] [place] BLE PAIN AND SWELLING HISTORY: Lower extremity swelling. Lower extremity pain. PROCEDURES: Venous duplex imaging was performed in bilateral lower extremities. The following venous structures were evaluated: common femoral vein, profunda vein, proximal portion of the greater saphenous vein, superficial femoral vein, and the popliteal vein. In addition, the posterior tibial and peroneal trunk were evaluated. Serial compression, augmentation maneuvers, and spectral Doppler flow evaluation were performed. FINDINGS: Normal 2-D Doppler and augmentation and compressibility throughout the lower extremity venous structures. Additional imaging through the proximal calf veins also reveals no thrombus. Limited evaluation of the greater saphenous vein is patent with no thrombus. CONCLUSIONS No DVT bilateral lower extremities. Dr. Isabela Ramos DO (Electronically Signed) Final Date: 04 August 2021 14:47 S
[2021-08-04] MEDS: nitroglycerin 1 gm/inch oint Pkt 1 INCH TOPICAL (11:45)
--- NOTE | 2021-08-04 12:06 | USCV_ITS ---
Husam Tse Age: 66 Gender: M : 1955 Exam Date: 08/04/2021 12:08 Ordering Phys: Ramiro Garza MD Technologist: NEFTALI Exam Location: [facility] [place] Indication: chest pain BP: 147 / 91 HR: 59 Rhythm: Sinus Technical Quality: Adequate MEASUREMENTS (Male / Female) Normal Values 2D ECHO LV Diastolic Diameter PLAX 4.2 cm 4.2 - 5.9 / 3.9 - 5.3 cm LV Systolic Diameter PLAX 3.4 cm IVS Diastolic Thickness 1.7 cm 0.6 - 1.0 / 0.6 - 0.9 cm IVS Systolic Thickness 1.7 cm LVPW Diastolic Thickness 1.3 cm 0.6 - 1.0 / 0.6 - 0.9 cm LVPW Systolic Thickness 1.8 cm LVOT Diameter 2.0 cm LV Ejection Fraction 2D Teich 42.0 % LV Ejection Fraction MOD 2C 56.7 % LV Ejection Fraction 2C AL 55.8 % LA Diameter 3.1 cm LA Width 3.0 cm LA Height 3.5 cm RA Width 2.9 cm RA Height 3.3 cm Aorta at Sinotubular Diameter 2.6 cm M-MODE Aortic Annulus Diameter 2.6 cm LA Ao Ratio MM 1.1 MV E Point Septal Separation 0.5 cm DOPPLER AV Peak Velocity 106.0 cm/s LVOT Peak Velocity 74.0 cm/s AV Area Cont Eq vti 2.3 cm squared AV Area Cont Eq pk 2.3 cm squared MV Peak Velocity 60.0 cm/s MV Area PHT 2.5 cm squared Mitral E to A Ratio 0.8 MV E' Velocity 27.0 cm/s Mitral E to MV E' Ratio 6.3 Mitral E to LV E' Lateral Ratio 5.7 Mitral E to LV E' Septal Ratio 6.9 TR Peak Velocity 197.7 cm/s TR Peak Gradient 15.6 mmHg TR Mean Velocity 140.3 cm/s TR Mean Gradient 8.4 mmHg TR Velocity Time Integral 47.9 cm TV Peak E Velocity 45.0 cm/s Right Atrial Pressure 3.0 mmHg Pulmonary Artery Systolic Pressu 18.6 mmHg PV Peak Velocity 110.0 cm/s RV Acceleration Time 0.1 s RV Ejection Time 0.3 s RV AcT/ET 0.2 FINDINGS Left Ventricle Mild left ventricular hypertrophy. Grade I/IV diastolic dysfunction (abnormal relaxation filling pattern), normal to mildly elevated filling pressures. Relative hypokinesia of the septum Right Ventricle The right ventricle is normal in size and function. Right Atrium The right atrium is normal in size. Left Atrium The left atrium is normal in size. Mitral Valve No gross abnormalities noted Aortic Valve Thickened aortic valve. Tricuspid Valve Trace tricuspid valve regurgitation. Pulmonic Valve Pulmonic valve not well visualized. Pericardium Normal pericardium without effusion. Aorta Normal ascending aorta dimension. CONCLUSIONS Mild left ventricular hypertrophy. Grade I/IV diastolic dysfunction (abnormal relaxation filling pattern), normal to mildly elevated filling pressures. Relative hypokinesia of the septum. Thickened aortic valve. Trace tricuspid valve regurgitation. There is no pericardial effusion. There are no intracardiac masses. No previous study is available for comparison. Dr Nish Lockhart MD [facility] (Electronically Signed) Final Date: 04 August 2021 23:52 S
--- NOTE | 2021-08-04 12:06 | P.HP_ITS ---
Providers/Chief Complaint Admitting Physician: Ramiro Garza MD Primary Care Provider: Lainey Flores DO Chief Complaint: chest pain History of Present Illness Husam Tse is a 66 year old male who presents to the hospital with complaints of chest discomfort. He has had 3-4 episodes in the last week. His last episode was last night. He was nonexertional at that time. It lasted about 5 minutes. He felt an intense pressure. It eventually went away. Pain did seem to radiate to his neck. Some palpitations associated with this. No nausea. He also had some pain in his left leg, later. He denies any recent fever, cough. He has been having issues with exertional dyspnea for the last month or 2. There is also been concerns with snoring, and sleep apnea and he is going to see a field test engineer and have a sleep study. He has not had a prior history of coronary disease. He has had a pacemaker in 2019. Family reports a nuclear stress test done that was normal prior to the pacemaker but this appears to have been done in 2016. Review of Systems General: Reports: 10 or more systems reviewed and unremarkable except in HPI and below Const: Reports: fatigue, daytime sleepiness and snoring; Denies: fever(s) Eyes: Denies: change in vision ENMT: Denies: throat pain Card: Reports: chest pain, palpitations and dyspnea on exertion Resp: Reports: dyspnea; Denies: wheezing GI: Denies: abdominal pain, nausea, vomiting, hematochezia or melena : Denies: flank pain Musc: Reports: joint pain; Denies: back pain Skin/Breast: Denies: rash Neuro: Denies: headache(s) Psych: Reports: anxiety; Denies: depression Endo: Denies: polyuria Jeremiah/Lymph: Denies: easy bruising All/Imm: Denies: urticaria Medications/Allergies Home Medications Medication Instructions Recorded Confirmed Last Taken Type aspirin 325 mg tablet 325 mg PO .THREE TIME A WEEK 02/09/21 08/04/21 Unknown History metoprolol succinate 25 mg 25 mg PO QAM 08/04/21 08/04/21 08/04/21 06:30 History tablet,extended release 24 hr Allergies Allergy/AdvReac Type Severity Reaction Status Date / Time No Known Allergies Allergy Verified 08/04/21 10:52 PFSH Acute PFSH: Medical History (Updated 08/04/21 @ 12:18 by Ramiro Garza MD) Essential hypertension Heart block bundle branch History of 2019 novel coronavirus disease (COVID-19) History of gastric ulcer Hyperlipidemia Pacemaker Prostatitis, acute Surgical History History of permanent cardiac pacemaker placement Family History (Updated 08/04/21 @ 12:14 by Ramiro Garza MD) Other CAD (coronary artery disease) Stroke Social History Smoking and tobacco status: never smoked Alcohol intake: never Vitals/I&O/Wt Last Vital Signs Temp 98.6 F 08/04/21 11:17 Pulse 62 08/04/21 11:25 Resp 18 08/04/21 11:25 BP 136/90 08/04/21 11:25 Pulse Ox 96 08/04/21 11:25 Weight last 48 hrs Weight 78.018 kg Physical Exam Narrative: General exam is a conversant white male in no apparent distress with family at bedside HEENT: Pupils equally round. Oropharynx clear. Neck is supple no lymphadenopathy or thyromegaly Cardiovascular regular rate and rhythm without murmur, no S3 or S4 Lungs clear no wheezing or crackles Chest pacemaker palpated left upper chest without erythema Abdomen is soft with positive bowel sounds. No obvious organomegaly exam was deferred Extremities no cyanosis clubbing or edema, cap refill brisk Skin no rash Neuro no obvious focal deficits. Data : 08/04/21 10:45 08/04/21 10:45 Other Labs: LFTs normal Troponin baseline 8, repeat pending Calcium 9.7 Chest x-ray no infiltrate, pacemaker noted EKG demonstrates paced atrial and ventricular rhythm, borderline left axis deviation A&P Assessment and plan (1) Chest pain: Significant chest discomfort, described as pressure, occurring at rest. Has had several episodes, but the worst last night. In the last several months has had exertional dyspnea that is worsening. This is suspicious for cardiac origin. Troponins is negative. Continue serial measurements Check echocardiogram Some component of palpitations, with the discomfort. Placed on telemetry, and perform pacemaker interrogation. Check TSH, magnesium level Cardiology consultation Aspirin daily Check lipid profile Consider continuing nitrates if any chest discomfort recurs Status: Acute (2) Dyspnea on exertion: See above Status: Acute (3) Essential hypertension: Continue metoprolol Close monitoring of blood pressure Adjust medicines as needed Status: Acute (4) Pacemaker: Pacemaker interrogation Status: Acute (5) Left leg pain: Reported some left leg pain, following his chest discomfort. Venous duplex shows a Lundberg's cyst, but official report is pending. Unlikely to have DVT. Status: Acute (6) History of gastric ulcer: Patient with past history of gastric ulcers, although no symptoms suggestive of this currently. Add Protonix while in hospital Status: Acute (7) Snoring: Patient to have sleep study done as an outpatient. Status: Acute Plan Full code Lovenox will suffice for DVT prophylaxis Attestations Medical Necessity Statement*: Will need less than 2 midnight stay for evaluation of chest discomfort. Coding Level of Care Code Acute Insolvency Consultant for Bethg Marthad Diagnoses Chest pain R07.9 Dyspnea on exertion R06.00 Essential hypertension I10 Pacemaker Z95.0 Left leg pain M79.605 History of gastric ulcer Z87.11 Snoring R06.83
--- NOTE | 2021-08-04 12:35 | ECG_ITS ---
[facility] Test Date: 2021-08-04 Pat Name: Husam Tse Department: Room: Gender: Male [place]er Off: : 1955 Requested By: Kannan Leigh Order Number: [id number] Sunny MD: Idalmis Barajas M.D. Measurements Intervals Kathleen Rate: 61 P: 115 OK: 181 QRS: -26 QRSD: 150 T: 62 QT: 428 QTc: 432 Interpretive Statements ELECTRONIC ATRIAL PACEMAKER ELECTRONIC VENTRICULAR PACEMAKER ABNORMAL RHYTHM ECG Compared to ECG 08/04/2021 10:26:23 No significant changes Electronically Signed On 08-04-2021 18:42:51 CDT by Idalmis Barajas M.D. [id number]
[2021-08-04] MEDS: perflutren protein-a microsphr 0.22 mg/mL SDV 3 mL IV (12:52)
[2021-08-04 13:12] LABS: Magnesium 2.3 mg/dL (1.7-2.3); Thyroid Stimulating Hormone 3.63 uIU/mL (0.27-4.20)
[2021-08-04 14:14] LABS: Troponin 5 2HR 8.79 ng/L (0-15)
[2021-08-04 14:25] LABS: Troponin 5 2HR Delta 0.79 ABS# (0-10)
[2021-08-04] MEDS: enoxaparin 40 mg/0.4 mL Syringe SUBCUT (14:53)
[2021-08-04] MEDS: acetaminophen 325 mg Tablet 650 MG PO (16:04)
--- NOTE | 2021-08-04 16:35 | ECG_ITS ---
[facility] Test Date: 2021-08-04 Pat Name: Husam Tse Department: Room: 105 Gender: Male Structurer: : 1955 Requested By: Kannan Leigh Order Number: [id number] Sunny MD: Idalmis Barajas M.D. Measurements Intervals Grant Rate: 60 P: 116 LA: 176 QRS: -22 QRSD: 165 T: 77 QT: 470 QTc: 472 Interpretive Statements ELECTRONIC ATRIAL PACEMAKER ELECTRONIC VENTRICULAR PACEMAKER ABNORMAL RHYTHM ECG Compared to ECG 08/04/2021 12:33:10 No significant changes Electronically Signed On 08-04-2021 18:39:20 CDT by Idalmis Barajas M.D. [id number]
--- NOTE | 2021-08-04 16:53 | P.CONIM_ITS ---
Providers/Reason For Consult Consulting Physician/Specialty*: FAIZAN Lockhart MD/cardiology Reason for Consult*: Patient with chest pain/hypertension/permanent pacer implantation Requesting Physician: Dr. Garza Attending Physician: Ramiro Garza MD Primary Care Provider: Lainey Flores DO History of Present Illness History of Present Illness Husam Tse is a 66 year old male with a history of hypertension, atrial arrhy thmia, permanent pacer implantation for symptomatic bradycardia/high degree AV block, he is presenting with complaints of prolonged episode of chest pain and shortness of breath. The patient apparently has been in his baseline state of health up until early this morning around 2:00. He woke up from sleep with chest pain. He described as a pressure-like squeezing type of pain in the left side of the chest. He had associated shortness of breath. The pain was radiating to the left side of the neck and also to the left leg. The chest pain might have lasted for 4 hours or so and then gradually subsided. He continued to have some pain in the left side of the neck and also of the left leg. Had no nausea or vomiting. No palpitation, dizziness or syncopal episodes. He has been having episodes of chest pains and shortness of breath for the last couple of years. He seems to be getting it more often and more severe, lately. He has no associated nausea vomiting. He had a stress test in 2019 which was unremarkable. He is scheduled for a PFT next week. Denies any fever or chills. No significant cough. He was seen by a bad work gatherer recently for the evaluation of shortness of breath His brother had a myocardial infarction in his 40s. Mother had a stroke and a permanent pacer implantation. High blood pressure runs in the family. Review of Systems Narrative: CONSTITUTIONAL: No fever or chills. EYES: No blurring of vision or other visual disturbances lately. ENT: No hoarseness of voice, auditory disturbances or sore throat. CARDIOVASCULAR: As mentioned above. RESPIRATORY: Has been having some shortness of breath. Scheduled for a sleep study. GASTROINTESTINAL: No hematemesis or melena. GENITOURINARY: No dysuria or hematuria. INTEGUMENTARY: No skin rashes or history of skin cancer. NEURO: No transient ischemic attacks or amaurosis. PSYCHIATRIC: No history of psychosis or major depression. HEMATOLOGIC: No bleeding disorders or significant anemia. ENDOCRINE: No history of polyuria or polydipsia. MUSCULOSKELETAL: No recent joint pain or swelling. ALLERGY/IMMUNOLOGY: As mentioned above. Medications/Allergies Home Medications Medication Instructions Recorded Confirmed Last Taken Type aspirin 325 mg tablet 325 mg PO .THREE TIME A WEEK 02/09/21 08/04/21 Unknown History metoprolol succinate 25 mg 25 mg PO QAM 08/04/21 08/04/21 08/04/21 06:30 History tablet,extended release 24 hr Allergies Allergy/AdvReac Type Severity Reaction Status Date / Time No Known Allergies Allergy Verified 08/04/21 10:52 Current Medications Generic Name Dose Route Start Last Admin Trade Name Freq PRN Reason Stop Dose Admin Acetaminophen 650 mg 08/04/21 12:53 08/04/21 16:04 Acetaminophen 325 Mg Tablet PO 650 mg Q6H PRN Administration Mild/Mod Pain Or Temp >/= 101 Enoxaparin Sodium 40 mg 08/04/21 12:53 08/04/21 14:53 Enoxaparin 40 Mg/0.4 Ml Syringe SUBCUT 40 mg Q24H VIJAY Administration PFSH Acute PFSH: Medical History (Updated 08/04/21 @ 16:55 by Nish Lockhart MD) Essential hypertension Heart block bundle branch History of 2019 novel coronavirus disease (COVID-19) History of gastric ulcer Hyperlipidemia Pacemaker Prostatitis, acute Surgical History History of permanent cardiac pacemaker placement Family History Other CAD (coronary artery disease) Stroke Social History Smoking and tobacco status: never smoked Alcohol intake: never Vitals/I&O/Wt Last Vital Signs Temp 98.6 F 08/04/21 11:17 Pulse 85 08/04/21 16:32 Resp 19 H 08/04/21 13:10 BP 120/80 08/04/21 13:10 Pulse Ox 94 08/04/21 16:32 Weight last 48 hrs Weight 172 lb Physical Exam Narrative: GENERAL: The patient is alert and oriented times three. Not in any acute distress. HEENT: No significant pallor, icterus or lymphadenopathy. The pupils are reactant to light. Oral cavity: There are no mucous membrane lesions. Funduscopic examination: The disk margins appear to be sharp with no exudates or hemorrhages. NECK: Trachea appears to be central. No masses noted. No JVD or thyromegaly appreciated. No carotid bruit. RESPIRATORY: Chest is symmetrical. No intercostals muscle retraction or any accessory muscle activation. There is no chest wall tenderness. Breath sounds are heard bilaterally. No rales or rhonchi heard. No evidence of any consolidation. BREASTS: Deferred. HEART: The PMI is in the 5th left intercostals space just inside the midclavicular line. No palpable precordial events. S1 and S2 are normal. No S3 or S4 heard. No pericardial rub or any click heard. ABDOMEN: No vessel pulsations or distention. No tenderness. No organomegaly appreciated. No abdominal bruit. Bowel sounds are normally heard. : Deferred. RECTAL: Deferred. LYMPHATIC: No lymphadenopathy noted in the neck or groin. EXTREMITIES: No edema or cyanosis. No clubbing. The pulses are symmetrical bila terally. The radial, femoral, dorsalis pedis and the posterior tibial pulses are palpated and found to be in good volume and amplitude. MUSCULOSKELETAL: No acute joint deformities or swelling SKIN: There are no significant scars or skin rash noted. NEUROPSYCHIATRIC: The patient is alert and oriented x3. Appears to be in a good mood. The higher functions are grossly within normal limits. No tremors or rigidity noted. Data : 08/04/21 10:45 08/04/21 10:45 Other Labs: Laboratory Last Values WBC 8.8 10^3/uL (4.0-10.0) 08/04/21 10:45 RBC 5.66 10^6/uL (4.1-5.3) H 08/04/21 10:45 Hgb 17.0 g/dL (11.7-16.6) H 08/04/21 10:45 Hct 50.8 % (42.0-52.0) 08/04/21 10:45 MCV 89.8 fl (80-94) 08/04/21 10:45 MCH 30.0 pg (28.0-34.0) 08/04/21 10:45 MCHC 33.5 g/dL (30.0-36.0) 08/04/21 10:45 RDW 12.3 % (12.1-15.1) 08/04/21 10:45 Plt Count 368 10^3/cmm (130-400) 08/04/21 10:45 MPV 10.0 fL (7.4-10.4) 08/04/21 10:45 Neut % (Auto) 66.9 % 08/04/21 10:45 Lymph % (Auto) 22.2 % 08/04/21 10:45 [place] % (Auto) 8.1 % 08/04/21 10:45 Eos % (Auto) 1.9 % 08/04/21 10:45 Baso % (Auto) 0.6 % 08/04/21 10:45 Neut # (Auto) 5.88 10^3/uL (1.8-7.7) 08/04/21 10:45 Lymph # (Auto) 2.0 10^3/uL (0.8-4.8) 08/04/21 10:45 [place] # (Auto) 0.7 10^3/uL (0.2-0.9) 08/04/21 10:45 Eos # (Auto) 0.2 10^3/uL (0.0-0.8) 08/04/21 10:45 Baso # (Auto) 0.1 10^3/uL (0.0-0.1) 08/04/21 10:45 Nucleated RBC % (auto) 0 % 08/04/21 10:45 Nucleated RBCs # 0.0 /100WBC 08/04/21 10:45 Sodium 138 mmol/L (136-145) 08/04/21 10:45 Potassium 3.7 mmol/L (3.5-5.1) 08/04/21 10:45 Chloride 101 mmol/L (98-107) 08/04/21 10:45 Carbon Dioxide 25 mmol/L (22-29) 08/04/21 10:45 Anion Gap 15.7 (5-19) 08/04/21 10:45 BUN 11 mg/dL (8-23) 08/04/21 10:45 Creatinine 0.7 mg/dL (0.7-1.2) 08/04/21 10:45 GFR Calculation 113.2 mL/min (90-130) 08/04/21 10:45 Glucose 109 mg/dL (65-115) 08/04/21 10:45 Calculated Osmolality 286 mOsm/kg (285-295) 08/04/21 10:45 Calcium 9.7 mg/dL (8.5-10.5) 08/04/21 10:45 Magnesium 2.3 mg/dL (1.7-2.3) 08/04/21 10:45 Total Bilirubin 0.4 mg/dL (0.15-1.2) 08/04/21 10:45 AST 26 U/L (0-40) 08/04/21 10:45 ALT 36 U/L (0-41) 08/04/21 10:45 Alkaline Phosphatase 95 IU/L (40-130) 08/04/21 10:45 Troponin T Baseline 8 ng/L (0-15) 08/04/21 10:45 Troponin T 120 Minute 8.79 ng/L (0-15) 08/04/21 13:35 Delta Troponin T 0.79 ABS# (0-10) 08/04/21 13:35 Total Protein 8.4 g/dL (6.6-8.7) 08/04/21 10:45 Albumin 4.7 g/dL (3.5-5.2) 08/04/21 10:45 Globulin 3.7 g/dL (1.3-4.6) 08/04/21 10:45 TSH 3.63 uIU/mL (0.27-4.20) 08/04/21 10:45 EKG 1: My Interpretation: The EKG revealed 100% AV paced rhythm. Further interpretation is not possible EKG computer-generated impression: Chest X-Ray 08/04/21 10:35 IMPRESSION: 1. No acute findings. 2. Cardiac device left anterior chest. 3. Small granuloma left perihilar region A&P Assessment and plan (1) Chest pain: Patient's episode of prolonged chest pain associated with the shortness of breath may suggest unstable angina. However the EKG is uninterpretable. No evidence of myocardial injury. Currently he seems to be stable hemodynamically Status: Acute (2) Essential hypertension: Currently he is normotensive. May currently on the current medication. Status: Acute (3) Presence of permanent cardiac pacemaker: Pacemaker function was found to be appropriate. Status: Acute (4) Atrial arrhythmia: Patient has a history of atrial arrhythmia and sinus tachycardia. Currently he is in a stable rhythm. Status: Acute Plan The troponin T at 6 hours is pending. For further management of his condition, and echocardiogram would be helpful. I may start him on subcu Lovenox, and a statin drug. Metoprolol and the aspirin will be continued. We may consider doing a cardiac catheterization to further evaluate his coronary status to decide on further management. Consult Attestations Medical Necessity Statement: Based on the patient's clinical progress and the results of the above test results, further recommendations will be made. Thank you for the opportunity to evaluate this patient and make these re commendations Coding Level of Care Code Acute Rolling Down Machine Operator for Valerie Gonsalves History Detailed Exam Detailed Medical Decision Making Moderate Complexity Diagnoses Chest pain R07.9 Essential hypertension I10 Presence of permanent cardiac pacemaker Z95.0 Atrial arrhythmia I49.8
[2021-08-04] MEDS: pantoprazole DR 40 mg Tablet PO (17:34)
[2021-08-04 17:44] LABS: Troponin 5 6HR 9.21 ng/L (0-15)
[2021-08-04 18:20] LABS: Troponin 5 6HR Delta 1.21 ng/L (0-12)
[2021-08-04] MEDS: atorvastatin 40 mg Tablet PO (19:56)
--- NOTE | 2021-08-04 23:24 | PC.NURSE ---
Patient states that he sometimes wakes up and gasps for air. Patient states it has been going on for a few months and that he has a sleep study set up. Oxygen saturation is currently 94 percent on room air and will be monitored continually.
[2021-08-05] VITALS (16 sets, daily range): BP systolic 99–143; BP diastolic 69–90; PULSE 30–69; RESP 8–20; TEMP 36–36.9; O2SAT 94–96
[2021-08-05] MEDS: enoxaparin 80 mg/0.8 mL Syringe SUBCUT (02:04)
[2021-08-05 06:42] LABS: Basophils # 0.1 10^3/uL (0.0-0.1); Basophils % 0.6 %; Eosinophils # 0.2 10^3/uL (0.0-0.8); Eosinophils % 2.5 %; Hematocrit 43.9 % (42.0-52.0); Hemoglobin 14.8 g/dL (11.7-16.6); Lymphocytes # 2.2 10^3/uL (0.8-4.8); Mean Corpuscular HGB Conc 33.7 g/dL (30.0-36.0); Mean Corpuscular Hemoglobin 30.4 pg (28.0-34.0); Mean Corpuscular Volume 90.1 fl (80-94); Mean Platelet Volume 10.3 fL (7.4-10.4); Monocytes # 0.8 10^3/uL (0.2-0.9); Monocytes % 9.2 %; Neutrophils # 5.41 10^3/uL (1.8-7.7); Neutrophils % 62.5 %; Nucleated Red Blood Cells % 0 %; Platelet Count 301 10^3/cmm (130-400); Red Blood Count 4.87 10^6/uL (4.1-5.3); Red Cell Distribution Width 12.4 % (12.1-15.1); White Blood Count 8.7 10^3/uL (4.0-10.0)
[2021-08-05 06:59] LABS: Blood Urea Nitrogen 16 mg/dL (8-23); Calcium 8.9 mg/dL (8.5-10.5); Carbon Dioxide 25 mmol/L (22-29); Chloride 105 mmol/L (98-107); Chol HDL Ratio 5.02 mg/dL (1.0-5.00); Cholesterol 241 mg/dL (0-200); Glomerular Filtration Rate 113.2 mL/min (90-130); Glucose 91 mg/dL (65-115); HDL Cholesterol 48 mg/dL (60-100); LDL Cholesterol Calculated 173 mg/dL (50-129); Magnesium 2.3 mg/dL (1.7-2.3); Osmolality Calculated 289 mOsm/kg (285-295); Sodium 139 mmol/L (136-145); Triglycerides 98 mg/dL (0-150)
--- NOTE | 2021-08-05 07:15 | PC.NURSE ---
received report, pt resting comfortably, at bedside. No questions and needs identified at this time. assumed care of patient,
[2021-08-05] MEDS: pantoprazole DR 40 mg Tablet PO (08:44)
[2021-08-05] MEDS: aspirin 325 mg Tablet PO (08:45)
--- NOTE | 2021-08-05 08:50 | PM.PN ---
Subjective Subjective: Husam reports he did not have any chest discomfort or shortness of breath last night. He is going to have an angiogram this morning. Questions were answered. He does have some anxiety, and we talked about potential treatments. Medications: Reviewed: Yes Vitals/I&O/Wt Last Vital Signs Temp 98.4 F 08/05/21 07:42 Pulse 63 08/05/21 07:42 Resp 8 L 08/05/21 07:42 BP 99/69 08/05/21 07:42 Pulse Ox 95 08/05/21 07:42 08/04/21 08/05/21 08/05/21 22:59 06:59 14:59 Intake Total 400 / 400 Balance 400 / 400 Weight last 48 hrs Weight 78.018 kg Physical Exam Narrative: General exam no distress Neck is supple no lymphadenopathy or thyromegaly Cardiovascular regular rate and rhythm without murmur, no S3 or S4 Lungs clear no wheezing or crackles Chest pacemaker palpated left upper chest without erythema Abdomen is soft with positive bowel sounds. No obvious organomegaly Extremities no cyanosis clubbing or edema, cap refill brisk Skin no rash Data : 08/05/21 05:38 08/05/21 05:38 A&P Assessment and plan (1) Chest pain: Significant chest discomfort, described as pressure, occurring at rest. Has had several episodes, but the worst last night. In the last several months has had exertional dyspnea that is worsening. This is suspicious for cardiac origin. Troponins is negative. Echocardiogram demonstrated preserved EF, slight septal wall motion abnormality, LVH, 1/4 diastolic dysfunction TSH, magnesium level were normal Appreciate cardiology consultation Continue aspirin, statin Consider continuing nitrates if any chest discomfort recurs Status: Acute (2) Dyspnea on exertion: See above Status: Acute (3) Essential hypertension: Continue metoprolol Close monitoring of blood pressure Adjust medicines as needed Status: Acute (4) Pacemaker: Pacemaker interrogation Status: Acute (5) Left leg pain: Reported some left leg pain, following his chest discomfort. Venous duplex shows a Lundberg's cyst, but official report is pending. Unlikely to have DVT. Status: Acute (6) History of gastric ulcer: Patient with past history of gastric ulcers, although no symptoms suggestive of this currently. Continue Protonix while in hospital Status: Acute (7) Snoring: Patient to have sleep study done as an outpatient. Status: Acute Plan Full code Lovenox will suffice for DVT prophylaxis Attestations Medical Necessity Statement*: Needs continued hospitalization, for definitive evaluation of chest discomfort with angiogram today. Coding Level of Care Code Acute Drill Runner Helper for Chg Fwd Diagnoses Chest pain R07.9 Dyspnea on exertion R06.00 Essential hypertension I10 Pacemaker Z95.0 Left leg pain M79.605 History of gastric ulcer Z87.11 Snoring R06.83
--- NOTE | 2021-08-05 09:21 | XACV_ITS ---
Exam Room: [facility] Ht: 178 cm Wt: 78 kg BSA: 1.97 m2 Gender: Male : 1955 Any Known Allergies: No known allergies Exam Priority: Routine Procedure(s): Procedure Description: Diagnostic procedure Procedure Description: Left Heart Catheterization Procedure Description: Coronary Angiography Richy MILLER; Diagnostic Cath Status: Urgent Diagnostic Findings * The left main is a medium caliber vessel with no significant obstructive lesions. * The left anterior descending artery is a medium caliber vessel which was found to have 30 to 40% diffuse irregular narrowing of the proximal to mid segment. No significant stenotic lesions were noted. The diagonal branches also were found to have some intimal irregularities. * Left circumflex artery is a medium caliber nondominant vessel which also was found to have minimal diffuse intimal irregularities with no significant stenotic lesions. * The right coronary artery is a large dominant vessel which was found to have mild diffuse disease in the proximal and the distal segments. The PDA and the PLV branches also were found to have minimal intimal irregularities. No significant stenotic lesions were noted. Conclusions 1. 66-year-old white male with history of hypertension, cardiac arrhythmia, status post permanent pacer implantation, is present with complaints of increasing chest pain and shortness of breath. He had an unremarkable exercise stress test in the past. In view of his worsening symptoms, in order to further evaluate his coronary status, a cardiac catheterization was recommended. His clinical features were consistent with an unstable anginal pattern. 2. Patient underwent left heart catheterization with left and right coronary angiogram and LV angiogram today. The findings are as follows. 3. Mild diffuse disease in the left anterior descending artery and right coronary artery. LV ejection fraction 50%. LVEDP of 15 mmHg. Diagnostic RX Recommendation: medical therapy and/or counseling LV EDP: 15 mmHg Ventriculography Ejection Fraction: 50.0 % Left Ventriculography Findings: * LV gram was performed in the AGUSTIN projection. There is mild diffuse hypokinesia of the left ventricle. No filling defects were noted. No significant mitral valve prolapse or mitral regurgitation. Pressures Phase:Rest AO : 144 / 78 ( 106 ) @ 11:16:00 AM 146 / 79 ( 105 ) @ 11:16:00 AM LV : 134 / -4 / 15 @ 11:15:00 AM 133 / 4 / 25 @ 11:16:00 AM 132 / 2 / 24 @ 11:16:00 AM Valves Phase:DefaultPhase AV : 0.0 @ 10:24:48 AM AV Mean Gradient: 0.0 @ 10:24:48 AM Clinical Evaluation EBL: 5mL-10mL Procedural Details Pre-Procedure Time Out. Identified patient by full name and date of as verbalized by the patient/guarantor. Does the consent match the physician's order: Yes. Accurate & Complete Informed Consent: Yes. Inpatient/Outpatient History & Physical on Chart: Yes. If H&P is completed, is and addenduem needed: No. Visualize and Verify Site with Patient/Guarantor: N/A. Relevant Radiology Images available: Yes. Pre-op teaching completed and patient verbalized understanding. The risks, benefits, and alternatives of sedation and/or procedure were discussed by physician. The patient agrees to continue. Procedure started. Correct patient, site and procedure confirmed by cath team. PERRLA. Strong, equal hand oracle consultant bilaterally. Lungs clear x 5 lobes. IV Site on Arrival: 18 gauge in the left anticubital. IV Fluids: 0.9% NaCl at KVO. 0 mL infused prior to bean sprout laborer. Pre Procedural Pulses: bilateral dorsalis pedis was 3+. Pre Procedural Pulses: bilateral posterior tibial was 3+. Pre Procedural Pulses: bilateral radial was 3+. Oxygen started at 2liters/min via nasal canula. right groin was prepped with chloroprep then draped in the usual sterile fashion. right radial was prepped with chloroprep then draped in the usual sterile fashion. Physician notified. Patient's family in the radiology waiting room. Dr. Lockhart will update at the completion of the case. Equipment: 6F - Radial. Cardiac Cath Pack. ACIST Manifold Kit Model BT 2000. Heparinized Saline (2 units/mL), 1000 mL bag. Joanna Rubalcava RN circulating with Bienvenido Swift RN, RUST. Physician arrived. Physician scrubbed in. Immediate Pre-Procedure Time Out. Correct Patient: Yes; Correct Procedure: Yes; Correct Site: Yes; Correct Patient Position: Yes; Correct Supplies: Yes; Dried Flammable Prep: Yes; Blood Products Available: No;. Lidocaine 1% infiltrated to the right radial. Arterial access obtained. Admit Source: In Patient. A 5 hong konger Ralf catheter in over wire. Catheter removed over the standard wire. A 5 hong konger TIG catheter in over wire. Multiple views taken of left coronary artery. Catheter redirected to the RCA. Catheter removed over the standard wire. Multiple views taken of right coronary artery. A 5 hong konger Angled Pig catheter in over wire. EDP Sample taken: LV 134/-5,15; HR: 60 BPM; SpO2: 98%. LV gram performed in AGUSTIN @ 10 mL/second for a total of 30 mL. EDP Sample taken: LV 133/4,25; HR: 60 BPM; SpO2: 98%. Pullback taken: LV 132/2,24; AO 144/78(106); Mean: 0mmHg, Peak to Peak: 0mmHg, SEP: 5sec/min; HR: 60 BPM; SpO2: 99%. Catheter removed over the standard wire. LV EDP: 15. Patient's family updated. Total IV fluids: 34 mL. Medication's Wasted: Nitro = 49.8 mg. Medication's Wasted: Heparin = 2000 unit. Medication's Wasted: Other = Versed 1 mg. Medication's Wasted: Other = Fentanyl 50 mcg. PERRLA. Strong, equal hand oracle consultant bilaterally. No VTE prophylaxis required. Post Procedure: Pulses reassessed and unchanged. Post-op diagnosis: Mild CAD. Complications: None. Estimated blood loss: 5mL-10mL. Responsiveness - Normal response to verbal stimuli; alert and oriented, PERRLA. Airway - Unaffected, no intervention required; spontaneous ventilation. Circulation: W/N/L, pulses unchanged. Nausea/Vomiting: No. A TR Band was successful obtaining hemostatsis at the Right Radial artery insertion site. Procedure completed. Patient transferred by wheelchair to 1st floor. Access Site Site: Right Radial artery Sheath Size: 6 Fr Hemostasis Method: TR Band Hemostasis Success: Successful Procedure Medications Start: 9:58 AM Stop: 9:58 AM Medication: Benadryl Amount: 25 mg Route: I.V. Start: 9:59 AM Stop: 9:59 AM Medication: Versed Amount: 1 mg Route: I.V. Start: 9:59 AM Stop: 9:59 AM Medication: Fentanyl Amount: 50 mcg Route: I.V. Start: 10:02 AM Stop: 10:02 AM Medication: Verapamil Amount: 5 mg Route: I.A. Start: 10:03 AM Stop: 10:03 AM Medication: Nitrogylcerin Amount: 200 mcg Route: I.A. Start: 10:05 AM Stop: 10:05 AM Medication: Heparin Amount: 4000 units Route: I.V. I, the attending physician, have reviewed and verified all procedure medications. Yes, all medications given per verbal order History/Risk Factors Hypertension: Yes Dyslipidemia: Yes Peripheral Arterial Disease (PAD): No Myocardial Infarction (AK): No Obesity: No Renal Disease: No Prior Interventions PCI: No CABG: No Valve Surgery: No Report Signatures Finalized by Dr Nish Lockhart MD [facility] on 08/05/2021 11:02 AM
--- NOTE | 2021-08-05 09:40 | W.PM.OPSUD ---
Surgery/Procedure H&P Update DATE OF PROCEDURE: August 05, 2021 DATE H&P PERFORMED: 08/04/21 H&P UPDATE INFORMATION: I have reviewed H&P completed within last 30 days, I have examined patient prior to procedure and No changes to prior documentation PREOP DIAGNOSIS: Unstable angina PRIMARY INDICATION FOR PROCEDURE: Unstable angina, suspected ASHD PLANNED PROCEDURE: Left heart catheterization with left and right coronary angiogram and possible PCI PATIENT REASSESSED PRIOR TO SEDATION, WITH NO CHANGE NOTED: Yes PHYSICAL EXAM: alert, oriented x 3, clear to auscultation bilaterally and regular rate & rhythm AIRWAY EVAL/ANESTHESIA PLAN: normal airway, see other exam findings, ASA II, Monitored Anesthesia, Local Anesthesia, Risks, benefits & alternatives of sedation and/or procedure discussed and Patient agrees to continue as planned
--- NOTE | 2021-08-05 09:43 | PM.PN ---
Subjective Subjective: The patient is feeling okay. Has not had any significant chest pain, since the hospital admission. Troponin Ts are negative so far for myocardial injury. The EKG is unremarkable because of the AV pacing Medications: Medication Review Details: Current Medications Acetaminophen (Acetaminophen 325 Mg Tablet) 650 mg PO Q6H PRN PRN Reason: Mild/Mod Pain Or Temp >/= 101 Last Admin: 08/04/21 16:04 Dose: 650 mg Documented by: Aspirin (Aspirin 325 Mg Tablet) 325 mg PO DAILY [facility] Last Admin: 08/05/21 08:45 Dose: 325 mg Documented by: Atorvastatin Calcium (Atorvastatin 40 Mg Tablet) 40 mg PO BEDTIME [facility] Last Admin: 08/04/21 19:56 Dose: 40 mg Documented by: Enoxaparin Sodium (Enoxaparin 80 Mg/0.8 Ml Syringe) 80 mg SUBCUT Q12H [facility] Last Admin: 08/05/21 02:04 Dose: 80 mg Documented by: Metoprolol Succinate (Metoprolol Succinate Er (24 Hr) 25 Mg Tablet) 25 mg PO DAILY [facility] Ondansetron HCl (Ondansetron 2 Mg/Ml Sdv 2 Ml) 4 mg IVP Q6H PRN PRN Reason: vomiting, or N/V if npo Pantoprazole Sodium (Pantoprazole Dr 40 Mg Tablet) 40 mg PO BID [facility] Last Admin: 08/05/21 08:44 Dose: 40 mg Documented by: Vitals/I&O/Wt Last Vital Signs Temp 98.4 F 08/05/21 07:42 Pulse 63 08/05/21 07:42 Resp 8 L 08/05/21 07:42 BP 99/69 08/05/21 07:42 Pulse Ox 95 08/05/21 07:42 08/04/21 08/05/21 08/05/21 22:59 06:59 14:59 Intake Total 400 / 400 Balance 400 / 400 Weight last 48 hrs Weight 172 lb Physical Exam Narrative: GENERAL: The patient is alert and oriented times three. Not in any acute distress. HEENT: No significant pallor, icterus or lymphadenopathy. The pupils are reactant to light. Oral cavity: There are no mucous membrane lesions. NECK: Trachea appears to be central. No masses noted. No JVD or thyromegaly appreciated. No carotid bruit. RESPIRATORY: Chest is symmetrical. No intercostals muscle retraction or any accessory muscle activation. There is no chest wall tenderness. Breath sounds are heard bilaterally. No rales or rhonchi heard. No evidence of any consolidation. BREASTS: Deferred. HEART: The PMI is in the 5th left intercostals space just inside the midclavicular line. No palpable precordial events. S1 and S2 are normal. No S3 or S4 heard. No pericardial rub or any click heard. ABDOMEN: No vessel pulsations or distention. No tenderness. No organomegaly appreciated. No abdominal bruit. Bowel sounds are normally heard. : Deferred. RECTAL: Deferred. LYMPHATIC: No lymphadenopathy noted in the neck or groin. EXTREMITIES: No edema or cyanosis. No clubbing. The pulses are symmetrical bilaterally. The radial, femoral, dorsalis pedis and the posterior tibial pulses are palpated and found to be in good volume and amplitude. MUSCULOSKELETAL: No acute joint deformities or swelling SKIN: There are no significant scars or skin rash noted. NEUROPSYCHIATRIC: The patient is alert and oriented x3. Appears to be in a good mood. The higher functions are grossly within normal limits. No tremors or rigidity noted. Data : 08/05/21 05:38 08/05/21 05:38 Other Labs: Laboratory Last Values WBC 8.7 10^3/uL (4.0-10.0) 08/05/21 05:38 RBC 4.87 10^6/uL (4.1-5.3) 08/05/21 05:38 Hgb 14.8 g/dL (11.7-16.6) 08/05/21 05:38 Hct 43.9 % (42.0-52.0) 08/05/21 05:38 MCV 90.1 fl (80-94) 08/05/21 05:38 MCH 30.4 pg (28.0-34.0) 08/05/21 05:38 MCHC 33.7 g/dL (30.0-36.0) 08/05/21 05:38 RDW 12.4 % (12.1-15.1) 08/05/21 05:38 Plt Count 301 10^3/cmm (130-400) 08/05/21 05:38 MPV 10.3 fL (7.4-10.4) 08/05/21 05:38 Neut % (Auto) 62.5 % 08/05/21 05:38 Lymph % (Auto) 25.0 % 08/05/21 05:38 [place] % (Auto) 9.2 % 08/05/21 05:38 Eos % (Auto) 2.5 % 08/05/21 05:38 Baso % (Auto) 0.6 % 08/05/21 05:38 Neut # (Auto) 5.41 10^3/uL (1.8-7.7) 08/05/21 05:38 Lymph # (Auto) 2.2 10^3/uL (0.8-4.8) 08/05/21 05:38 [place] # (Auto) 0.8 10^3/uL (0.2-0.9) 08/05/21 05:38 Eos # (Auto) 0.2 10^3/uL (0.0-0.8) 08/05/21 05:38 Baso # (Auto) 0.1 10^3/uL (0.0-0.1) 08/05/21 05:38 Nucleated RBC % (auto) 0 % 08/05/21 05:38 Nucleated RBCs # 0.0 /100WBC 08/05/21 05:38 Sodium 139 mmol/L (136-145) 08/05/21 05:38 Potassium 4.0 mmol/L (3.5-5.1) 08/05/21 05:38 Chloride 105 mmol/L (98-107) 08/05/21 05:38 Carbon Dioxide 25 mmol/L (22-29) 08/05/21 05:38 Anion Gap 13.0 (5-19) 08/05/21 05:38 BUN 16 mg/dL (8-23) 08/05/21 05:38 Creatinine 0.7 mg/dL (0.7-1.2) 08/05/21 05:38 GFR Calculation 113.2 mL/min (90-130) 08/05/21 05:38 Glucose 91 mg/dL (65-115) 08/05/21 05:38 Calculated Osmolality 289 mOsm/kg (285-295) 08/05/21 05:38 Calcium 8.9 mg/dL (8.5-10.5) 08/05/21 05:38 Magnesium 2.3 mg/dL (1.7-2.3) 08/05/21 05:38 Total Bilirubin 0.4 mg/dL (0.15-1.2) 08/04/21 10:45 AST 26 U/L (0-40) 08/04/21 10:45 ALT 36 U/L (0-41) 08/04/21 10:45 Alkaline Phosphatase 95 IU/L (40-130) 08/04/21 10:45 Troponin T Baseline 8 ng/L (0-15) 08/04/21 10:45 Troponin T 120 Minute 8.79 ng/L (0-15) 08/04/21 13:35 Delta Troponin T 0.79 ABS# (0-10) 08/04/21 13:35 Troponin T Hi Sens 6Hr 9.21 ng/L (0-15) 08/04/21 16:50 Troponin T Hi Sens 6Hr Delta 1.21 ng/L (0-12) 08/04/21 16:50 Total Protein 8.4 g/dL (6.6-8.7) 08/04/21 10:45 Albumin 4.7 g/dL (3.5-5.2) 08/04/21 10:45 Globulin 3.7 g/dL (1.3-4.6) 08/04/21 10:45 Triglycerides 98 mg/dL (0-150) 08/05/21 05:38 Cholesterol 241 mg/dL (0-200) H 08/05/21 05:38 LDL Cholesterol, Calc 173 mg/dL (50-129) H 08/05/21 05:38 HDL Cholesterol 48 mg/dL (60-100) L 08/05/21 05:38 LDL/HDL Ratio 3.60 RATIO (0.00-3.22) H 08/05/21 05:38 Cholesterol/HDL Ratio 5.02 mg/dL (1.0-5.00) H 08/05/21 05:38 TSH 3.63 uIU/mL (0.27-4.20) 08/04/21 10:45 A&P Assessment and plan (1) Chest pain: Patient's episode of prolonged chest pain associated with the shortness of breath may suggest unstable angina. However the EKG is uninterpretable. No evidence of myocardial injury. Currently he seems to be stable hemodynamically. Myocardial infarction was ruled out at the city enzymes. Status: Acute (2) Essential hypertension: Currently he is normotensive. May currently on the current medication. Status: Acute (3) Presence of permanent cardiac pacemaker: Pacemaker function was found to be appropriate. Status: Acute (4) Atrial arrhythmia: Patient has a history of atrial arrhythmia and sinus tachycardia. Currently he is in a stable rhythm. Status: Acute Plan In view of the patient's worsening symptoms, in order to further evaluate his coronary status, a cardiac catheterization would be appropriate. The risk of bleeding, hematoma, vascular injury, myocardial infarction, CVA, renal failure and other concomitant complications were explained in detail. Patient understood this well and consented to proceed. Discussed with Dr. Garza who also agreed with this plan. We will go ahead and schedule this this morning. Based on the results, further management decisions will be made. Attestations Medical Necessity Statement*: Patient requires continued hospital stay for close monitoring and further management Coding Level of Care Code Acute Home Health Billing Specialist for [facility] Fwd History Detailed Exam Detailed Medical Decision Making Moderate Complexity Diagnoses Chest pain R07.9 Essential hypertension I10 Presence of permanent cardiac pacemaker Z95.0 Atrial arrhythmia I49.8
--- NOTE | 2021-08-05 11:26 | PC.CHAP ---
Pastoral Care Encounter/Spiritual Assessment Type of Contact [] Declined heating and ventilating drafter visit [] Patient/Family/Request visit [] Outpatient visit [] Follow-up visit [] Physician referral [] Code/Alert [x] Routine visit [] Staff referral [] Actively dying [] Patient sleeping [] Family support [] [] Out of room [] Palliative care [] [] Receiving care in room [] Pre-surgical visit [] Trauma [] Long length of stay [] ICU visit [] Other: Relational/Emotional Strength [x] Patient feels connected with others/family/visitors/staff [] Distress [] Loneliness/isolation [] Abandonment Spirituality of Patient [x] Person of Audrey [x] Attends Catholic of their Audrey [x] Believes in Prayer [] Reads Bible or Christianity materials [] There are Spiritual issues to be addressed In School Suspension Aide Interventions [x] Prayer [x] Active listening [x] Non-anxious presence [x] Spiritual/emotional support [] Crisis/trauma care [] Spiritual counseling [] Bereavement support [] Provided bereavement packet [] Provided Bible/devotional materials [] Provided toy/stuffed animal, coloring book to patient or family member [] Provided Communion [] Anointing/Isabella [] Salvation [x] Completed spiritual assessment [] Other: Impact on Illness or Injury [] Angry [] Fearful [] Anxious [] Often cries [] Exhaustion [] Unable to work [] Unable to attend restorationist [] Unable to walk/stand [] Unable to read [] Unable to drive [] Unable to eat/drink [] Unable to sleep [] Unable to be with family [] Patient intubated [] Other: Summary Time spent with patient
--- NOTE | 2021-08-05 14:17 | P.DS_ITS ---
Discharge Providers Date of Admission: 08/04/21 12:09 Date of Discharge: August 05, 2021 Attending Provider at Admission: Ramiro Garza MD Attending Provider at Discharge: Ramiro Garza MD Primary Care Provider: Lainey Flores DO Diagnoses at Discharge Discharge Diagnosis (1) Chest pain: Status: Acute (2) Essential hypertension: Status: Acute (3) Presence of permanent cardiac pacemaker: Status: Acute (4) Atrial arrhythmia: Status: Acute Reason for Visit Reason for Visit: chest pain Hospital Course Hospital Course Dedrick Oquendo presented to the hospital with complaints of chest discomfort, and dyspnea on exertion. Troponin was negative. Echocardiogram was performed which demonstrated EF that was preserved but some wall motion abnormality in the septum. He underwent an angiogram on August 04. This demonstrated coronary disease, but not flow-limiting. LAD lesion was 30 to 40%, other vessels minimal. Medicines were optimized with continuation of beta-angela, continuing aspirin, addition of statin. He will follow up in cardiology clinic as well as with his primary care provider. He will also follow-up with pulmonary which he already has scheduled for sleep study and other evaluation of his dyspnea. LDL was checked in 173. Chest x-ray and venous duplex were negative. 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 echo wo/w contrast [id number] Routine Ultrasound 08/04/21 12:06 Completed US venous duplex lower extremity bilat [CV venous Ultrasound 08/04/21 11:39 [place] [id number]] Stat Pending at discharge Category Date Time Status BMP [Basic Metabolic Panel] AM LABS Lab 08/06/21 04:00 Ordered CBC Auto Diff [Complete Blood Count w/Auto] AM LABS Lab 08/06/21 04:00 Ordered Radiology Impressions Chest X-Ray 08/04/21 10:35 IMPRESSION: 1. No acute findings. 2. Cardiac device left anterior chest. 3. Small granuloma left perihilar region Laboratory Results WBC 8.7 10^3/uL (4.0-10.0) 08/05/21 05:38 RBC 4.87 10^6/uL (4.1-5.3) 08/05/21 05:38 Hgb 14.8 g/dL (11.7-16.6) 08/05/21 05:38 Hct 43.9 % (42.0-52.0) 08/05/21 05:38 MCV 90.1 fl (80-94) 08/05/21 05:38 MCH 30.4 pg (28.0-34.0) 08/05/21 05:38 MCHC 33.7 g/dL (30.0-36.0) 08/05/21 05:38 RDW 12.4 % (12.1-15.1) 08/05/21 05:38 Plt Count 301 10^3/cmm (130-400) 08/05/21 05:38 MPV 10.3 fL (7.4-10.4) 08/05/21 05:38 Neut % (Auto) 62.5 % 08/05/21 05:38 Lymph % (Auto) 25.0 % 08/05/21 05:38 [place] % (Auto) 9.2 % 08/05/21 05:38 Eos % (Auto) 2.5 % 08/05/21 05:38 Baso % (Auto) 0.6 % 08/05/21 05:38 Neut # (Auto) 5.41 10^3/uL (1.8-7.7) 08/05/21 05:38 Lymph # (Auto) 2.2 10^3/uL (0.8-4.8) 08/05/21 05:38 [place] # (Auto) 0.8 10^3/uL (0.2-0.9) 08/05/21 05:38 Eos # (Auto) 0.2 10^3/uL (0.0-0.8) 08/05/21 05:38 Baso # (Auto) 0.1 10^3/uL (0.0-0.1) 08/05/21 05:38 Nucleated RBC % (auto) 0 % 08/05/21 05:38 Nucleated RBCs # 0.0 /100WBC 08/05/21 05:38 Sodium 139 mmol/L (136-145) 08/05/21 05:38 Potassium 4.0 mmol/L (3.5-5.1) 08/05/21 05:38 Chloride 105 mmol/L (98-107) 08/05/21 05:38 Carbon Dioxide 25 mmol/L (22-29) 08/05/21 05:38 Anion Gap 13.0 (5-19) 08/05/21 05:38 BUN 16 mg/dL (8-23) 08/05/21 05:38 Creatinine 0.7 mg/dL (0.7-1.2) 08/05/21 05:38 GFR Calculation 113.2 mL/min (90-130) 08/05/21 05:38 Glucose 91 mg/dL (65-115) 08/05/21 05:38 Calculated Osmolality 289 mOsm/kg (285-295) 08/05/21 05:38 Calcium 8.9 mg/dL (8.5-10.5) 08/05/21 05:38 Magnesium 2.3 mg/dL (1.7-2.3) 08/05/21 05:38 Total Bilirubin 0.4 mg/dL (0.15-1.2) 08/04/21 10:45 AST 26 U/L (0-40) 08/04/21 10:45 ALT 36 U/L (0-41) 08/04/21 10:45 Alkaline Phosphatase 95 IU/L (40-130) 08/04/21 10:45 Troponin T Baseline 8 ng/L (0-15) 08/04/21 10:45 Troponin T 120 Minute 8.79 ng/L (0-15) 08/04/21 13:35 Delta Troponin T 0.79 ABS# (0-10) 08/04/21 13:35 Troponin T Hi Sens 6Hr 9.21 ng/L (0-15) 08/04/21 16:50 Troponin T Hi Sens 6Hr Delta 1.21 ng/L (0-12) 08/04/21 16:50 Total Protein 8.4 g/dL (6.6-8.7) 08/04/21 10:45 Albumin 4.7 g/dL (3.5-5.2) 08/04/21 10:45 Globulin 3.7 g/dL (1.3-4.6) 08/04/21 10:45 Triglycerides 98 mg/dL (0-150) 08/05/21 05:38 Cholesterol 241 mg/dL (0-200) H 08/05/21 05:38 LDL Cholesterol, Calc 173 mg/dL (50-129) H 08/05/21 05:38 HDL Cholesterol 48 mg/dL (60-100) L 08/05/21 05:38 LDL/HDL Ratio 3.60 RATIO (0.00-3.22) H 08/05/21 05:38 Cholesterol/HDL Ratio 5.02 mg/dL (1.0-5.00) H 08/05/21 05:38 TSH 3.63 uIU/mL (0.27-4.20) 08/04/21 10:45 Vitals Last Vital Signs Temp 98.1 F 08/05/21 11:48 Pulse 30 L 08/05/21 11:48 Resp 13 08/05/21 11:48 BP 121/72 08/05/21 11:48 Pulse Ox 96 08/05/21 11:48 Discharge Plan Discharge Patient Disposition: Home Condition: Stable Prescriptions: New atorvastatin 40 mg Tablet 40 mg PO BEDTIME Qty: 30 0RF pantoprazole [Protonix] 40 mg tablet,delayed release (DR/EC) 40 mg PO DAILY Qty: 30 0RF Continued aspirin 325 mg tablet 325 mg PO .THREE TIME A WEEK 0RF metoprolol succinate 25 mg tablet extended release 24 hr 25 mg PO QAM 0RF Discharge Orders: Discharge Order (Routine); Ordered 08/05/21 Ordered By: Ramiro Garza Referrals: Lainey Flores DO [Primary Care Provider] - 4-7 days Lauryn Estevez FNP [Nurse Practitioner] - 4-7 days Discharge Diet: Cardiac Discharge Activity: Increase activity as tolerated Patient Instructions: Angiogram (DC), Opioid Safety Activity Restrictions/Additional Instructions: Take all medicine as prescribed Follow-up with primary care provider Follow-up with cardiology as instructed May discharge once protocol regarding angiogram site right wrist is completed. Discharge Attestations Time Spent in Discharge Care*: greater than 30 min Quality Metrics Clinical Quality Measures [ No reported AMI, CVA or VTE this stay] Coding Level of Care Code Acute Chg FW DC note Diagnoses Chest pain R07.9 Essential hypertension I10 Presence of permanent cardiac pacemaker Z95.0 Atrial arrhythmia I49.8
--- NOTE | 2021-08-05 16:29 | PC.NURSE ---
discharge instructions discussed with patient and . rx sent to [facility] [place]. radial site dressing intact. No s/s of bleeding or hematoma. pt left via [place] to private vehicle. no further questions or concerns from patient and spouse. left with all personal belongings.
== END 2021-08-05 16:15 | disposition home or self-care (01) ==
LOC: ER 12:33 → CSU 12:41
PROVIDERS: Internal Medicine Cardiovascular Disease; Admitting Provider Internal Medicine; Emergency Provider Family Medicine; PCP Family Medicine; Visit Provider Internal Medicine
DX: I25.110 Atherosclerotic heart disease of native coronary artery with unstable angina pectoris (principal); I10 Essential (primary) hypertension; Z95.0 Presence of cardiac pacemaker; I49.8 Other specified cardiac arrhythmias; Z79.82 Long term (current) use of aspirin; E78.5 Hyperlipidemia, unspecified; R06.00 Dyspnea, unspecified; M79.605 Pain in left leg; Z87.11 Personal history of peptic ulcer disease; R06.83 Snoring; Z86.16 Personal history of COVID-19; Z82.49 Family history of ischemic heart disease and other diseases of the circulatory system; Z82.3 Family history of stroke
CPT/HCPCS: 36415; 71045; 80048; 80053; 80061; 83735; 84443; 84484; 85025; 93005; 93452; 93458; 93970; 96372; 99285; C1769; C1887; C1894; C8929; G0378; J1200; J1644; J1650; J2250; J3010; J3490; J7030; Q9956; Q9967

== ENCOUNTER → 2021-08-12 10:30 | Outpatient (BNVA) | payer MEDICARE, SELFPAY | PROVIDERS: PCP Family Medicine; Visit Provider Nurse Practitioner Family | DX: Z09 Encounter for follow-up examination after completed treatment for conditions other than malignant neoplasm (principal); I25.10 Atherosclerotic heart disease of native coronary artery without angina pectoris; I10 Essential (primary) hypertension; Z79.82 Long term (current) use of aspirin | CPT/HCPCS: 36415; 80048; 99213; 99214 ==

== ENCOUNTER → 2021-09-22 14:49 | Outpatient (BNVA) | payer MEDICARE, SELFPAY | PROVIDERS: PCP Family Medicine; Visit Provider Internal Medicine Cardiovascular Disease | DX: I25.10 Atherosclerotic heart disease of native coronary artery without angina pectoris (principal); Z95.0 Presence of cardiac pacemaker; I10 Essential (primary) hypertension; E78.5 Hyperlipidemia, unspecified | CPT/HCPCS: 99214 ==

== ENCOUNTER → 2021-11-06 08:55 | Outpatient (BNVA) | payer MEDICARE, SELFPAY | PROVIDERS: PCP Family Medicine; Visit Provider Internal Medicine Cardiovascular Disease | DX: Z45.010 Encounter for checking and testing of cardiac pacemaker pulse generator [battery] (principal) | CPT/HCPCS: 93280 ==

== ENCOUNTER → 2021-11-19 08:20 | Outpatient (BNVA) | payer MEDICARE, SELFPAY | PROVIDERS: PCP Family Medicine; Visit Provider Specialist | DX: M17.0 Bilateral primary osteoarthritis of knee (principal) | CPT/HCPCS: 20610; J7326 ==

== ENCOUNTER → 2022-02-18 10:03 | Outpatient (BNVA) | payer MEDICARE, SELFPAY | PROVIDERS: PCP Family Medicine; Visit Provider Specialist | DX: M17.0 Bilateral primary osteoarthritis of knee (principal) | CPT/HCPCS: 20610; J1100; J2795; J3301 ==

== ENCOUNTER → 2022-04-07 10:09 | Outpatient (BNVA) | payer MEDICARE, SELFPAY | PROVIDERS: PCP Family Medicine; Visit Provider Internal Medicine Cardiovascular Disease | DX: I49.8 Other specified cardiac arrhythmias (principal); I25.10 Atherosclerotic heart disease of native coronary artery without angina pectoris; Z95.0 Presence of cardiac pacemaker; I10 Essential (primary) hypertension; E78.5 Hyperlipidemia, unspecified | CPT/HCPCS: 99214 ==

== ENCOUNTER → 2022-06-14 09:27 | Outpatient (BNVA) | payer MEDICARE, SELFPAY | PROVIDERS: PCP Family Medicine; Visit Provider Family Medicine | DX: I10 Essential (primary) hypertension (principal); R35.1 Nocturia; F41.1 Generalized anxiety disorder | CPT/HCPCS: 80053; 80061; 84153; 85025 ==

== ENCOUNTER → 2022-10-20 09:33 | Outpatient (BNVA) | payer MEDICARE, SELFPAY | PROVIDERS: PCP Family Medicine; Visit Provider Internal Medicine Cardiovascular Disease | DX: I49.8 Other specified cardiac arrhythmias (principal); E78.5 Hyperlipidemia, unspecified; I25.10 Atherosclerotic heart disease of native coronary artery without angina pectoris; I10 Essential (primary) hypertension; R06.00 Dyspnea, unspecified; Z95.0 Presence of cardiac pacemaker | CPT/HCPCS: 99214 ==

== ENCOUNTER → 2022-12-09 08:36 | Outpatient (BNVA) | payer MEDICARE, SELFPAY | PROVIDERS: PCP Family Medicine; Visit Provider Specialist | DX: M17.0 Bilateral primary osteoarthritis of knee (principal) | CPT/HCPCS: 20610; 73560; 73565; 99213; J7326 ==

== ENCOUNTER → 2023-03-11 08:19 | Outpatient (BNVA) | payer MEDICARE, SELFPAY | PROVIDERS: PCP Family Medicine; Visit Provider Family Medicine | DX: N39.490 Overflow incontinence (principal); N40.1 Benign prostatic hyperplasia with lower urinary tract symptoms | CPT/HCPCS: 81000 ==

== ENCOUNTER → 2023-03-30 16:05 | Outpatient (BNVA) | payer MEDICARE, SELFPAY | PROVIDERS: PCP Family Medicine; Visit Provider Internal Medicine Cardiovascular Disease | DX: Z45.010 Encounter for checking and testing of cardiac pacemaker pulse generator [battery] (principal) | CPT/HCPCS: 93296 ==

== ENCOUNTER → 2023-04-28 11:07 | Outpatient (BNVA) | payer MEDICARE, SELFPAY | PROVIDERS: PCP Family Medicine; Visit Provider Internal Medicine Cardiovascular Disease | DX: R07.89 Other chest pain (principal); I10 Essential (primary) hypertension; Z95.0 Presence of cardiac pacemaker; R06.00 Dyspnea, unspecified; E78.2 Mixed hyperlipidemia; I49.8 Other specified cardiac arrhythmias | CPT/HCPCS: 99214 ==

== ENCOUNTER 2023-06-07 07:16 | Outpatient (CLI) | payer MEDICARE, SELFPAY ==
--- NOTE | 2023-06-07 | ECG_ITS ---
[facility] Test Date: 2023-06-07 Pat Name: Husam Tse Department: Room: Gender: Male Tint Layer: : 1955 Requested By: Nish Lockhart Order Number: [id number] Correa MD: Wyatt Almanza M.D. Interpretive Statements NAME OF STUDY: LEXISCAN SESTAMIBI STRESS TEST INDICATION: [Chest Pain; Shortness of Breath] Procedure: At the baseline, the blood pressure was 109/59 mmHg with a heart rate of 62 bpm. The electrocardiogram showed normal sinus rhythm, interventricular conduction delay with normal ST and T's. The Lexiscan was infused over a period of 20 seconds. A total of 0.4 mg of Lexiscan was infused. The stress phase was continued for a total of 5 minutes. Heart rate was at the end of stress phase was 78 bpm and a blood pressure of 181/79 mmHg. The EKG at the peak infusion revealed normal sinus rhythm with no significant ST-T wave changes. Sestamibi was injected 20 seconds after the Lexiscan infusion. Blood pressure at the end of recovery phase was 161/74 mmHg with a heart rate of 70 bpm. Conclusion: 1. Normal EKG response to Lexiscan infusion 2. No Lexiscan induced chest pain or cardiac arrhythmia. 3. Normal blood pressure and heart rate response. 4. Sestamibi/sestamibi perfusion scan pending; see separate report. Electronically Signed On 06-17-2023 12:06:36 BUSINESS SUPPORT ASSOCIATE by Wyatt Almanza M.D. [email or web address]
[2023-06-07 07:26] VITALS: BMI 26.6
--- NOTE | 2023-06-07 07:34 | NMCV_ITS ---
NM rene perf SPECT r/s* [id number] Husam Tse Age: 68 Gender: M : 1955 Exam Date: 06/07/2023 07:34 Ordering Phys: Nish Lockhart MD ([email or web address]) Technologist: LEA Bach Exam Location: [facility] Indications: CORONARY ANGIOPLASTY STATUS STRESS TEST Please see separate stress test report in [facility] for full findings IMAGE PROTOCOL Rest/Stress 1 Radiopharmaceutical Dose (mCi) Administration Site Administered by Rest: Tc-99m 10.6 IV LEA Barker Sestamibi Stress:Tc-99m 32.2 IV LEA Barker Sestamibi Rest: 07-Jun-2023 60 Discovery 630 Stress: 07-Jun-2023 30 Discovery 630 Images obtained in supine and prone position. Images obtained in supine and prone position. SPECT RESULTS Technical Quality: Excellent Raw Data Analysis: Normal Image Corrections: No attenuation or motion correction applied Summed Stress Score: 1 Summed Rest Score: 4 Summed Difference Score: 0 PERFUSION FINDINGS SPECT images demonstrate homogeneous tracer distribution throughout the myocardium. FUNCTIONAL RESULTS (calculated via Gated SPECT) Stress Image LV EF (%): 72 Stress EDV (mL):112 TID: 0.89 Stress ESV (mL):31 FUNCTIONAL FINDINGS: There is normal left ventricular systolic function. IMPRESSIONS 1. Normal myocardial perfusion imaging with no evidence of ischemia 2. LV systolic function is normal Wyatt Almanza MD (Electronically Signed) Final Date: 08 June 2023 08:55 S
[2023-06-07] MEDS: regadenoson 0.4 Mg/5 ml Syringe IVP (08:36)
[2023-06-07 09:00] VITALS: BP 111/74; PULSE 72
== END 2023-06-07 07:17 | disposition home or self-care (01) ==
PROVIDERS: PCP Family Medicine; Visit Provider Internal Medicine Cardiovascular Disease
DX: R07.9 Chest pain, unspecified (principal); R06.02 Shortness of breath; Z98.61 Coronary angioplasty status
CPT/HCPCS: 36415; 78452; 93017; 96374; A9500; J2785

== ENCOUNTER → 2023-10-06 09:01 | Outpatient (BNVA) | payer MEDICARE, SELFPAY | PROVIDERS: PCP Family Medicine; Visit Provider Family Medicine | DX: I25.118 Atherosclerotic heart disease of native coronary artery with other forms of angina pectoris (principal); Z13.6 Encounter for screening for cardiovascular disorders; I10 Essential (primary) hypertension; E78.2 Mixed hyperlipidemia; N40.1 Benign prostatic hyperplasia with lower urinary tract symptoms; F41.1 Generalized anxiety disorder | CPT/HCPCS: 80053; 80061 ==